=== PATIENT | male | born 1975 | race African-American/Black ===

== ENCOUNTER 2018-01-05 08:29 | Inpatient (IN) | payer OTHER ==
--- NOTE | 2018-01-05 09:37 | HP ---
CIWA Score - CIWA Score Nausea/Vomitin Muscle Tremors: 3 Anxiety: 2 Agitation: 2 Paroxysmal Sweats: 1-Minimal Palms Moist Orientation: 0-Oriented Tacttile Disturbances: 1-Very Mild Itch/Numbness Auditory Disturbances: 1-Very Mild Visual Disturbances: 1-Very Mild Sensitivity Headache: 2-Mild CIWA-Ar Total Score: 16 Admission ROS B[facility] - HPI Chief Complaint: i need help to stop drinking alcohol Allergies/Adverse Reactions: Allergies Allergy/AdvReac Type Severity Reaction Status Date / Time No Known Allergies Allergy Verified 01/05/18 11:35 History of Present Illness: this 42 years old with alcohol dependence,seeking detox,withdrawal symptom,last treatment [facility] 12/30/17 to 01/03/18 not completed seizure alcohol related in 12/16 syncope last 01/03/18 nicotine dependence anxiety,depression,insomnia weight loss multiple admissions in detox ,last [facility] no significant period of sobriety - Ebola screening Have you traveled outside of the country in the last 21 days: No Have you had contact with anyone from an Ebola affected area: No Have you been sick,other than usual withdrawal symptoms: No Do you have a fever: No - Review of Systems Constitutional: Loss of Appetite, Night Sweats, Weakness EENT: reports: No Symptoms Reported Respiratory: reports: No Symptoms reported Cardiac: reports: No Symptoms Reported GI: reports: No Symptoms Reported : reports: No Symptoms Reported Musculoskeletal: reports: No Symptoms Reported Integumentary: reports: No Symptoms Reported Neuro: reports: No Symptoms reported Endocrine: reports: No Symptoms Reported Hematology: reports: No Symptoms Reported Psychiatric: reports: No Sypmtoms Reported Patient History - Patient Medical History Hx Anemia: No Hx Asthma: No Hx Chronic Obstructive Pulmonary Disease (COPD): No Hx Cancer: No Hx Cardiac Disorders: No Hx Congestive Heart Failure: No Hx Hypertension: No Hx Hypercholesterolemia: No Hx Pacemaker: No HX Cerebrovascular Accident: No Hx Seizures: Yes (last 12/16) Hx Dementia: No Hx Diabetes: No Hx Gastrointestinal Disorders: No Hx Liver Disease: No Hx Genitourinary Disorders: No Hx Sexually Transmitted Disorders: No Hx Renal Disease (ESRD): No Hx Thyroid Disease: No Hx Human Immunodeficiency Virus (HIV): No (last 01.15 negative) Hx Hepatitis C: No Hx Depression: Yes (anxiety) Hx Suicide Attempt: No Hx Bipolar Disorder: No Hx Schizophrenia: No Other Medical History: in somnia,no suicidal,no homicidal - Patient Surgical History Past Surgical History: No - PPD History Previous Implant?: Yes Documented Results: Negative w/o proof Implanted On Prior R Admission?: No PPD to be Administered?: Yes - Smoking Cessation Smoking history: Current every day smoker Have you smoked in the past 12 months: Yes Aproximately how many cigarettes per day: 10 Hx Chewing Tobacco Use: No Initiated information on smoking cessation: Yes 'Breaking Loose' booklet given: 01/05/18 - Substance & Tx. History Hx Alcohol Use: Yes Hx Substance Use: No Substance Use Type: Alcohol Hx Substance Use Treatment: Yes (last [facility] 12/30/17 to ) - Substances Abused Alcohol Route: Oral Frequency: Daily Amount used: 1 to 2 pints of vodka Age of first use: 14 Date of Last Use: 01/04/18 Family Disease History - Family Disease History Family History: Denies Admission Physical Exam [facility] - Vital Signs Vital Signs: Vital Signs - 24 hr 01/05/18 08:56 Temperature 97.7 F Pulse Rate 93 H Respiratory 17 Rate Blood Pressure 123/79 - Physical General Appearance: Yes: Within Normal Limits HEENTM: Yes: Within Normal Limits Respiratory: Yes: Within Normal Limits Neck: Yes: Within Normal Limits Breast: Yes: Within Normal Limits Cardiology: Yes: Regular Rhythm, Regular Rate, S1, S2 Abdominal: Yes: Within Normal Limits, Normal Bowel Sounds, Non Tender, Flat, Soft Genitourinary: Yes: Within Normal Limits Back: Yes: Within Normal Limits Musculoskeletal: Yes: Within Normal Limits Extremities: Yes: Within Normal Limits Neurological: Yes: store shopper II-XII NML intact, Fully Oriented, Alert, Motor Strength 5/5 Integumentary: Yes: Within Normal Limits Lymphatic: Yes: Within Normal Limits - Diagnostic (1) Alcohol dependence Current Visit: Yes Status: Acute (2) Alcohol related seizure Current Visit: Yes Status: Acute (3) Syncope Current Visit: Yes Status: Acute (4) Weight loss Current Visit: Yes Status: Acute (5) Nicotine dependence Current Visit: Yes Status: Acute (6) Insomnia secondary to depression with anxiety Current Visit: Yes Status: Acute Cleared for Admission [facility] - Detox or Rehab Claeared for Rehab Admission: Yes BHS Breath Alcohol Content Breath Alcohol Content: 0.119 Urine Drug Screen - Results Drug Screen Negative: No Urine Drug Screen Results: BZO-Benzodiazepines Inpatient Rehab Admission - Initial Determination Are CD services needed?: Yes Free of communicable disease: Yes Not in need of hospitalization: Yes - Rehab Admission Criteria Previous failed treatment: Yes Poor recovery environment: Yes Comorbidities: Yes Lacks judgement: No Patient is meeting Inpatient Rehab admission criteria:: Yes
[2018-01-05] MEDS ORDERED: MAGNESIUM HYDROX 2400MG/30ML ORAL SUSPENSION 30 ML CUP PO PRN (14:06)
[2018-01-05] MEDS ORDERED: ACETAMINOPHEN 325 MG TABLET (FP) PO PRN (14:06)
[2018-01-05] MEDS ORDERED: MAGNESIUM CITRATE 300 ML BOTTLE PO PRN (14:06)
[2018-01-05] MEDS ORDERED: MENTHOL/PHENOL 1 EACH UD MM PRN (14:06)
[2018-01-05] MEDS ORDERED: P-EPHED 60MG/TRIPROLIDI 2.5MG TABLET PO PRN (14:06)
[2018-01-05] MEDS ORDERED: hydrOXYzine PAMOATE 25 MG CAPSULE (FP) PO PRN (14:06)
[2018-01-05] MEDS ORDERED: MAG HYDROX/AL HYDROX/SIMETH 30 ML UNIT-DOSE CUP PO PRN (14:06)
[2018-01-05] MEDS ORDERED: LOPERAMIDE HCL 2 MG CAPSULE PO PRN (14:06)
[2018-01-05] MEDS ORDERED: guaiFENesin/D-METHORPHAN HB 10 ML UNIT-DOSE CUPS PO PRN (14:06)
--- NOTE | 2018-01-05 16:08 | PN ---
BHS Progress Note Note: Patient reports no positive PPD hx of BGM vaccine in the past. PPD order place re: TB screen continue to monitor
[2018-01-05 17:23] LABS: HEMATOCRIT 40.5 % (35.4-49); HEMOGLOBIN 13.7 GM/dL (11.7-16.9); MCH 32.1 pg (25.7-33.7); MCHC 33.8 g/dl (32.0-35.9); MEAN CELL VOLUME 94.9 fl (80-96); MEAN PLT VOLUME 9.9 fl (7.5-11.1); PLATELET COUNT 98 K/MM3 (134-434); RBC 4.26 M/mm3 (4.00-5.60); RDW 14.7 % (11.9-15.9)
[2018-01-05 17:49] LABS: ALBUMIN 3.5 g/dl (3.4-5.0); ALK PHOS 129 U/L (45-117); ANION GAP 7 MMOL/L (8-16); BILIRUBIN,TOTAL 0.3 mg/dL (0.2-1); BLOOD UREA NITROGEN 6 mg/dL (7-18); CALCIUM 8.3 mg/dL (8.5-10.1); CHLORIDE 100 mmol/L (98-107); CO2 30 mmol/L (21-32); CREATININE 0.8 mg/dL (0.55-1.3); GLUCOSE,RANDOM 85 mg/dL (74-106); POTASSIUM 3.6 mmol/L (3.5-5.1); SGOT/AST 82 U/L (15-37); SGPT/ALT 64 U/L (13-61); SODIUM 138 mmol/L (136-145); TOT PROT 7.4 g/dl (6.4-8.2)
[2018-01-05] MEDS ORDERED: TUBERCULIN PPD 5 TU/0.1ML VIAL ID ONE ×2 (17:56→21:59)
[2018-01-05] MEDS: NICOTINE 21 MG/24 HOURS TOPICAL PATCH TD SCH (18:00)
[2018-01-05] MEDS: hydrOXYzine PAMOATE 50 MG CAPSULE (FP) PO PRN (18:32)
[2018-01-05] MEDS: THIAMINE HCL 100 MG TABLET (FP) PO SCH (21:27)
[2018-01-05] MEDS ORDERED: MELATONIN 5 MG TABLETS PO PRN (22:00)
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
[2018-01-06] MEDS: hydrOXYzine PAMOATE 50 MG CAPSULE (FP) PO PRN ×4 (06:35→21:39)
[2018-01-06] MEDS: NICOTINE 21 MG/24 HOURS TOPICAL PATCH TD SCH (09:45)
[2018-01-06] MEDS: PRENATAL VITAMINS W/ FOLIC ACID TABLET (FP) PO SCH (09:45)
[2018-01-06] MEDS ORDERED: SERTRALINE HCL 50 MG TABLET (FP) PO SCH (10:15)
[2018-01-06] MEDS ORDERED: SERTRALINE HCL 50 MG TABLET (FP) PO ONE (10:49)
[2018-01-06] MEDS: SERTRALINE HCL 50 MG TABLET (FP) PO SCH (11:40)
--- NOTE | 2018-01-06 11:48 | EKG ---
Test Reason : Blood Pressure : / mmHG Vent. Rate : 069 BPM Atrial Rate : 069 BPM P-R Int : 180 ms QRS Dur : 078 ms QT Int : 420 ms P-R-T Axes : -17 022 026 degrees QTc Int : 450 ms NORMAL SINUS RHYTHM MODERATE VOLTAGE CRITERIA FOR LVH, MAY BE NORMAL VARIANT CANNOT RULE OUT SEPTAL INFARCT , AGE UNDETERMINED ABNORMAL ECG NO PREVIOUS ECGS AVAILABLE Confirmed by Deyvi Colon MD ([id number]) on 01/06/2018 11:48:07 AM Referred By: Confirmed By:Deyvi Colon MD
[2018-01-06] MEDS ORDERED: FLU VACCINE QUAD 60 MCG/0.5 ML (MDV 18-19) IM ONE (12:00)
[2018-01-06] MEDS: THIAMINE HCL 100 MG TABLET (FP) PO SCH (21:39)
[2018-01-06] MEDS: MELATONIN 5 MG TABLETS PO PRN (21:40)
[2018-01-07] MEDS ORDERED: SERTRALINE HCL 50 MG TABLET (FP) PO SCH (06:00)
[2018-01-07] MEDS: hydrOXYzine PAMOATE 50 MG CAPSULE (FP) PO PRN ×4 (06:27→23:06)
[2018-01-07] MEDS: IBUPROFEN 400 MG TABLET (FP) PO PRN ×2 (06:28→18:31)
[2018-01-07] MEDS: SERTRALINE HCL 50 MG TABLET (FP) PO SCH (06:28)
[2018-01-07] MEDS: NICOTINE 21 MG/24 HOURS TOPICAL PATCH TD SCH (10:23)
[2018-01-07] MEDS: PRENATAL VITAMINS W/ FOLIC ACID TABLET (FP) PO SCH (10:23)
[2018-01-07] MEDS ORDERED: ONDANSETRON *ODT* 4 MG TABLET SL PRN (11:59)
--- NOTE | 2018-01-07 12:04 | PN ---
S Progress Note Note: C/O NAUSEA, NO DIARRHEA. ALERT O X 3. NAD. Vital Signs 01/07/18 06:51 Temperature 99.2 F Pulse Rate 80 Respiratory 18 Rate Blood Pressure 136/78 Laboratory Tests 01/05/18 01/05/18 01/05/18 14:14 14:14 14:14 WBC 4.0 RBC 4.26 Hgb 13.7 Hct 40.5 MCV 94.9 MCH 32.1 MCHC 33.8 RDW 14.7 Plt Count 98 L MPV 9.9 Sodium 138 Potassium 3.6 Chloride 100 Carbon Dioxide 30 Anion Gap 7 L BUN 6 L Creatinine 0.8 Creat Clearance w eGFR > 60 Random Glucose 85 Calcium 8.3 L Total Bilirubin 0.3 AST 82 H ALT 64 H Alkaline Phosphatase 129 H Total Protein 7.4 Albumin 3.5 RPR Titer Nonreactive PLAN:ZOFRAN DIRECTED.
--- NOTE | 2018-01-07 12:07 | HP ---
CIWA Score - CIWA Score Nausea/Vomitin Muscle Tremors: 3 Anxiety: 2 Agitation: 2 Paroxysmal Sweats: 1-Minimal Palms Moist Orientation: 0-Oriented Tacttile Disturbances: 1-Very Mild Itch/Numbness Auditory Disturbances: 1-Very Mild Visual Disturbances: 1-Very Mild Sensitivity Headache: 2-Mild CIWA-Ar Total Score: 16 Admission ROS BHS - HPI Chief Complaint: i need health to stop drinking alcohol Allergies/Adverse Reactions: Allergies Allergy/AdvReac Type Severity Reaction Status Date / Time No Known Allergies Allergy Verified 01/05/18 11:35 History of Present Illness: i need help to stop drinking alcohol,completed detox from 12/30/17 to , completed detox at [facility] seizure alcohol related syncope last 01/03/18 nicotine dependence anxiety,depression,insomnia weight loss multiple admissions in detox,last [facility] no significant period of sobriety Exam Limitations: No Limitations - Ebola screening Have you traveled outside of the country in the last 21 days: No Have you had contact with anyone from an Ebola affected area: No Have you been sick,other than usual withdrawal symptoms: No Do you have a fever: No - Review of Systems Constitutional: No Symptoms Reported EENT: reports: No Symptoms Reported Respiratory: reports: No Symptoms reported Cardiac: reports: No Symptoms Reported GI: reports: No Symptoms Reported : reports: No Symptoms Reported Musculoskeletal: reports: No Symptoms Reported Integumentary: reports: No Symptoms Reported Neuro: reports: No Symptoms reported Endocrine: reports: No Symptoms Reported Hematology: reports: No Symptoms Reported Psychiatric: reports: No Sypmtoms Reported Other Systems: Reviewed and Negative Patient History - Patient Medical History Hx Anemia: No Hx Asthma: No Hx Chronic Obstructive Pulmonary Disease (COPD): No Hx Cancer: No Hx Cardiac Disorders: No Hx Congestive Heart Failure: No Hx Hypertension: No Hx Hypercholesterolemia: No Hx Pacemaker: No HX Cerebrovascular Accident: No Hx Seizures: Yes (last 12/16) Hx Dementia: No Hx Diabetes: No Hx Gastrointestinal Disorders: No Hx Liver Disease: No Hx Genitourinary Disorders: No Hx Sexually Transmitted Disorders: No Hx Renal Disease (ESRD): No Hx Thyroid Disease: No Hx Human Immunodeficiency Virus (HIV): No (last 01.15 negative) Hx Hepatitis C: No Hx Depression: Yes (anxiety) Hx Suicide Attempt: No Hx Bipolar Disorder: No Hx Schizophrenia: No Other Medical History: in somnia,no suicidal,no homicidal - Patient Surgical History Past Surgical History: No Hx Neurologic Surgery: No Hx Cataract Extraction: No Hx Cardiac Surgery: No Hx Lung Surgery: No Hx Breast Surgery: No Hx Breast Biopsy: No Hx Abdominal Surgery: No Hx Appendectomy: No Hx Cholecystectomy: No Hx Genitourinary Surgery: No Hx Section: No Hx Orthopedic Surgery: No Anesthesia Reaction: No - PPD History Previous Implant?: Yes Documented Results: Negative w/o proof Implanted On Prior [facility] Admission?: No - Smoking Cessation Smoking history: Current every day smoker Have you smoked in the past 12 months: Yes Aproximately how many cigarettes per day: 10 Hx Chewing Tobacco Use: No Initiated information on smoking cessation: Yes 'Breaking Loose' booklet given: 01/06/18 - Substance & Tx. History Hx Alcohol Use: Yes Hx Substance Use: No Substance Use Type: Alcohol Hx Substance Use Treatment: Yes (12/30/17 to 01/03/18 [facility]) - Substances Abused Alcohol Route: Oral Frequency: Daily Amount used: 1 to 2 pints of vodka Age of first use: 14 Date of Last Use: 01/04/18 Family Disease History - Family Disease History Family History: Denies Admission Physical Exam [facility] - Vital Signs Vital Signs: Vital Signs - 24 hr 01/07/18 01/07/18 01/07/18 00:30 03:30 06:51 Temperature 99.2 F Pulse Rate 80 Respiratory 18 18 18 Rate Blood Pressure 136/78 - Physical General Appearance: Yes: Within Normal Limits HEENTM: Yes: Within Normal Limits Respiratory: Yes: Within Normal Limits Neck: Yes: Within Normal Limits Breast: Yes: Breast Exam Deferred Cardiology: Yes: Within Normal Limits Abdominal: Yes: Within Normal Limits Genitourinary: Yes: Within Normal Limits Back: Yes: Within Normal Limits Musculoskeletal: Yes: Within Normal Limits Extremities: Yes: Within Normal Limits Neurological: Yes: Within Normal Limits Integumentary: Yes: Within Normal Limits Lymphatic: Yes: Within Normal Limits - Diagnostic (1) Alcohol dependence Current Visit: Yes Status: Acute (2) Alcohol related seizure Current Visit: Yes Status: Deleted (3) Syncope Current Visit: Yes Status: Acute (4) Weight loss Current Visit: Yes Status: Acute (5) Nicotine dependence Current Visit: Yes Status: Chronic (6) Insomnia secondary to depression with anxiety Current Visit: Yes Status: Acute Cleared for Admission [facility] - Detox or Rehab Claeared for Rehab Admission: Yes [facility] Breath Alcohol Content Breath Alcohol Content: 0.119 Urine Drug Screen - Results Drug Screen Negative: No Urine Drug Screen Results: BZO-Benzodiazepines Inpatient Rehab Admission - Initial Determination Are CD services needed?: Yes Free of communicable disease: Yes Not in need of hospitalization: Yes - Rehab Admission Criteria Previous failed treatment: Yes Poor recovery environment: Yes Comorbidities: Yes Lacks judgement: No Patient is meeting Inpatient Rehab admission criteria:: Yes
--- NOTE | 2018-01-07 12:22 | PN ---
[facility] Progress Note Note: please discard the note history and physical exam on 01/05/18 and ciwa score patient was admitted to rehab ,has completed detox at [facility] 12/30/17 to 01/03/18
[2018-01-07] MEDS: MELATONIN 5 MG TABLETS PO PRN (21:38)
[2018-01-07] MEDS: THIAMINE HCL 100 MG TABLET (FP) PO SCH (21:38)
[2018-01-08] MEDS: hydrOXYzine PAMOATE 50 MG CAPSULE (FP) PO PRN ×4 (06:51→22:21)
[2018-01-08] MEDS: IBUPROFEN 400 MG TABLET (FP) PO PRN ×2 (06:52→21:37)
[2018-01-08] MEDS: SERTRALINE HCL 50 MG TABLET (FP) PO SCH (06:52)
[2018-01-08 07:07] VITALS: TEMP 98.4
[2018-01-08] MEDS: PRENATAL VITAMINS W/ FOLIC ACID TABLET (FP) PO SCH (10:20)
[2018-01-08] MEDS: NICOTINE 21 MG/24 HOURS TOPICAL PATCH TD SCH (10:20)
[2018-01-08] MEDS: MELATONIN 5 MG TABLETS PO PRN (21:35)
[2018-01-08] MEDS: THIAMINE HCL 100 MG TABLET (FP) PO SCH (21:35)
[2018-01-08] MEDS: prednisoLONE ACETATE 1% OPHTH SUSP 5 ML BOTTLE OD SCH (22:22)
[2018-01-08] MEDS: ARTIFICIAL TEARS (POLYVINYL ALCOHOL) OPTH DROPS OU SCH (22:23)
[2018-01-09] MEDS: SERTRALINE HCL 50 MG TABLET (FP) PO SCH (06:28)
[2018-01-09 07:08] VITALS: BP 139/69; PULSE 63
[2018-01-09] MEDS ORDERED: PANTOPRAZOLE 40 MG TABLET (FP) PO SCH (10:00)
[2018-01-09] MEDS: prednisoLONE ACETATE 1% OPHTH SUSP 5 ML BOTTLE OD SCH (10:09)
[2018-01-09] MEDS: PRENATAL VITAMINS W/ FOLIC ACID TABLET (FP) PO SCH (10:09)
[2018-01-09] MEDS: ARTIFICIAL TEARS (POLYVINYL ALCOHOL) OPTH DROPS OU SCH (10:09)
[2018-01-09] MEDS: NICOTINE 21 MG/24 HOURS TOPICAL PATCH TD SCH (10:10)
[2018-01-09] MEDS: hydrOXYzine PAMOATE 50 MG CAPSULE (FP) PO PRN (10:11)
== END 2018-01-09 10:50 | disposition left against medical advice (07) | DRG 770 ==
LOC: YASAS 08:29 → Y3W 13:41 → Y5N 13:53
PROVIDERS: ADMIT Psychiatry & Neurology Psychiatry; ATTEND Psychiatry & Neurology Psychiatry
PROC: HZ42ZZZ Group Counseling for Substance Abuse Treatment, Cognitive-Behavioral (ICD-10-PCS; principal; 2018-01-05)
DX: F10.24 Alcohol dependence with alcohol-induced mood disorder (principal); F10.282 Alcohol dependence with alcohol-induced sleep disorder; F17.210 Nicotine dependence, cigarettes, uncomplicated; F51.05 Insomnia due to other mental disorder; F33.9 Major depressive disorder, recurrent, unspecified; E78.5 Hyperlipidemia, unspecified; B18.1 Chronic viral hepatitis B without delta-agent; Z86.69 Personal history of other diseases of the nervous system and sense organs; Z87.898 Personal history of other specified conditions
CPT/HCPCS: 36415; 71046-TC-FY; 80053; 81003; 85027; 86593; 90688; 93005; 93010; G0008; Q0162

== ENCOUNTER 2018-04-04 08:16 | Inpatient (IN) | payer OTHER ==
[2018-04-04 09:12] VITALS: BMI 20.7
--- NOTE | 2018-04-04 10:27 | HP ---
CIWA Score Nausea/Vomitin Muscle Tremors: 4-Moderate,w/Arms Extend Anxiety: 4-Mod. Anxious/Guarded Agitation: 0-Normal Activity Paroxysmal Sweats: No Perspiration Orientation: 1-Uncertain about Date Tacttile Disturbances: 0-None Auditory Disturbances: 1-Very Mild Visual Disturbances: 0-None Headache: 2-Mild CIWA-Ar Total Score: 14 - Admission Criteria [facility] Guidelines: Admission for Medically Managed Detox: Requires at least one of the followin. CIWA greater than 12 2. Seizures within the past 24 hours 3. Delirium tremens within the past 24 hours 4. Hallucinations within the past 24 hours 5. Acute intervention needed for co occurring medical disorder 6. Acute intervention needed for co occurring psychiatric disorder 7. Severe withdrawal that cannot be handled at a lower level of care (continued vomiting, continued diarrhea, abnormal vital signs) requiring intravenous medication and/or fluids 8. Patient presents the following: CIWA greater than 12 Admission Criteria Met: Admission criteria met Admission ROS S - HPI Chief Complaint: I need help, I'm drinking to much, I'm sleeping on the street, I'm shaking so bad, I'm so sick with sweats and chills if I don't drink Allergies/Adverse Reactions: Allergies Allergy/AdvReac Type Severity Reaction Status Date / Time No Known Allergies Allergy Verified 04/04/18 09:42 History of Present Illness: 42 yo gentleman here for detox from alcohol - was in [place] ED last night due to intoxication (urine tox + bzo) and referred her for detox. Previously here for rehab 01/05/18. Patient with multiple circular lesions on body - states he had a biopsy done at [facility] and told it was psoriasis and given hydrocortisone cream. He also has an eye condition for which he received drops but cannot say the name of his eye problem - I called the pharmacy who verified he was Rx these drops as recently as 03/16/18 but he failed to pick them up - he states he still had leftover drops. History of alcohol related seizure - noted to have thrombocytopenia at last visit but he is not aware of this or why he has it. Exam Limitations: Clinical Condition - Ebola screening Have you traveled outside of the country in the last 21 days: No (N) Have you had contact with anyone from an Ebola affected area: No Have you been sick,other than usual withdrawal symptoms: No Do you have a fever: No - Review of Systems Constitutional: Loss of Appetite, Changes in sleep EENT: reports: Blurred Vision Respiratory: reports: No Symptoms reported Cardiac: reports: No Symptoms Reported GI: reports: Poor Appetite, Indigestion : reports: Frequency Musculoskeletal: reports: No Symptoms Reported Integumentary: reports: Dryness Neuro: reports: Headache, Tremors Endocrine: reports: No Symptoms Reported Hematology: reports: No Symptoms Reported Psychiatric: reports: Judgement Intact, Mood/Affect Appropiate, Anxious Other Systems: Reviewed and Negative Patient History - Patient Medical History Hx Anemia: Yes (thrombocytopenia) Hx Asthma: No Hx Chronic Obstructive Pulmonary Disease (COPD): No Hx Cancer: No Hx Cardiac Disorders: No Hx Congestive Heart Failure: No Hx Hypertension: No Hx Hypercholesterolemia: Yes (no meds) Hx Pacemaker: No HX Cerebrovascular Accident: No Hx Seizures: Yes (last 01/2018 FROM ALCOHOL WITHDRAWAL) Hx Dementia: No Hx Diabetes: No Hx Gastrointestinal Disorders: Yes (history of pancreatitis (in Bx Leb x 4 days in February)) Hx Liver Disease: Yes (hepatitis B ?) Hx Genitourinary Disorders: No Hx Sexually Transmitted Disorders: No Hx Renal Disease (ESRD): No Hx Thyroid Disease: No Hx Human Immunodeficiency Virus (HIV): No (last 01.15 negative) Hx Hepatitis C: No Hx Depression: Yes (anxiety) Hx Suicide Attempt: No Hx Bipolar Disorder: No Hx Schizophrenia: No Other Medical History: psoriasis - Patient Surgical History Past Surgical History: No Hx Neurologic Surgery: No Hx Cataract Extraction: No Hx Cardiac Surgery: No Hx Lung Surgery: No Hx Breast Surgery: No Hx Breast Biopsy: No Hx Abdominal Surgery: No Hx Appendectomy: No Hx Cholecystectomy: No Hx Genitourinary Surgery: No Hx Section: No Hx Orthopedic Surgery: No Anesthesia Reaction: No - PPD History Previous Implant?: No (BCG vaccine) Documented Results: Positive w/o proof Implanted On Prior [facility] Admission?: No Results: CXR 01/15/18 PPD to be Administered?: No - Reproductive History Patient is a Female of Child Bearing Age (11 -55 yrs old): No (male) - Smoking Cessation Smoking history: Current every day smoker Have you smoked in the past 12 months: Yes Aproximately how many cigarettes per day: 10 Hx Chewing Tobacco Use: No Initiated information on smoking cessation: Yes 'Breaking Loose' booklet given: 04/04/18 (give on floor) - Substance & Tx. History Hx Alcohol Use: Yes Hx Substance Use: No Substance Use Type: Alcohol Hx Substance Use Treatment: Yes (detox) - Substances Abused Alcohol Route: Oral Frequency: Daily Amount used: 3 PINTS OF VODKA Age of first use: 14 Date of Last Use: 04/03/18 Family Disease History - Family Disease History Family Disease History: Diabetes: Father (living - in [facility]), Other: Father, Mother (living - in [facility]), Brother (four - healthy - two in [place]), Sister (two - healthy - one lives in [facility]), Daughter (one age 16 in [facility]) Admission Physical Exam S - Vital Signs Vital Signs: Vital Signs - 24 hr 04/04/18 08:56 Temperature 97.9 F Pulse Rate 93 H Respiratory 20 Rate Blood Pressure 157/89 - Physical General Appearance: Yes: Nourished, Appropriately Dressed, Moderate Distress, Tremorous, Anxious HEENTM: Yes: EOMI, Hearing grossly Normal, Normocephalic, Normal Voice, Pharynx Normal, Other (conjunctiva bilaterally red - right eye with small breen lesion near pupil (patient states that is what is being treated with the drops)) Respiratory: Yes: Normal Breath Sounds, No Respiratory Distress Neck: Yes: No masses,lesions,Nodules, Supple Breast: Yes: Breast Exam Deferred Cardiology: Yes: Regular Rhythm, Regular Rate Abdominal: Yes: Flat, Soft Genitourinary: Yes: Frequency Back: Yes: Normal Inspection Musculoskeletal: Yes: full range of Motion, Gait Steady Extremities: Yes: Normal Capillary Refill, Normal Inspection, Normal Range of Motion, Non-Tender Neurological: Yes: Fully Oriented, Alert, Motor Strength 5/5, Normal Mood/Affect , Normal Response Integumentary: Yes: Normal Color, Dry, Warm, Rash (circular psoriatic lesions over entire body - arms, legs, trunk, scalp, forehead -) Lymphatic: Yes: Within Normal Limits - Diagnostic (1) Alcohol dependence with uncomplicated withdrawal Current Visit: Yes Status: Chronic (2) Eye disease Current Visit: Yes Status: Chronic (3) Generalized psoriasis Current Visit: Yes Status: Chronic (4) Hepatitis B Current Visit: Yes Status: Chronic Qualifiers: Viral hepatitis chronicity: unspecified Hepatic coma status: without hepatic coma (5) Thrombocytopenia Current Visit: Yes Status: Chronic (6) Alcohol related seizure Current Visit: Yes Status: Suspected Cleared for Admission [facility] - Detox or Rehab [facility] Level of Care: Medically Managed Detox Regimen/Protocol: Librium [facility] Breath Alcohol Content Breath Alcohol Content: 0.167 Urine Drug Screen - Results Drug Screen Negative: No Urine Drug Screen Results: BZO-Benzodiazepines
[2018-04-04] MEDS ORDERED: MAGNESIUM HYDROX 2400MG/30ML ORAL SUSPENSION 30 ML CUP PO PRN (11:24)
[2018-04-04] MEDS ORDERED: chlordiazePOXIDE HCL 25 MG CAPSULE PO PRN (11:24)
[2018-04-04] MEDS ORDERED: MAG HYDROX/AL HYDROX/SIMETH 30 ML UNIT-DOSE CUP PO PRN (11:24)
[2018-04-04] MEDS ORDERED: MENTHOL/PHENOL 1 EACH UD MM PRN (11:24)
[2018-04-04] MEDS ORDERED: hydrOXYzine PAMOATE 25 MG CAPSULE (FP) PO PRN (11:24)
[2018-04-04] MEDS ORDERED: MAGNESIUM CITRATE 300 ML BOTTLE PO PRN (11:24)
[2018-04-04] MEDS ORDERED: P-EPHED 60MG/TRIPROLIDI 2.5MG TABLET PO PRN (11:24)
[2018-04-04] MEDS ORDERED: IBUPROFEN 400 MG TABLET (FP) PO PRN (11:24)
[2018-04-04] MEDS ORDERED: ACETAMINOPHEN 325 MG TABLET (FP) PO PRN (11:24)
[2018-04-04] MEDS ORDERED: guaiFENesin/D-METHORPHAN HB 10 ML UNIT-DOSE CUPS PO PRN (11:24)
[2018-04-04] MEDS ORDERED: COLLOIDAL OATMEAL 1 BAR EACH TP PRN (11:25)
[2018-04-04] MEDS ORDERED: chlordiazePOXIDE HCL 25 MG CAPSULE PO ONE (12:30)
[2018-04-04] MEDS: prednisoLONE ACETATE 1% OPHTH SUSP 5 ML BOTTLE OD SCH ×3 (12:59→22:06)
[2018-04-04] MEDS: ARTIFICIAL TEARS (POLYVINYL ALCOHOL) OPTH DROPS OU SCH ×3 (12:59→22:06)
[2018-04-04] MEDS: NICOTINE 21 MG/24 HOURS TOPICAL PATCH TD SCH (13:00)
[2018-04-04] MEDS: HYDROCORTISONE 1% TOPICAL OINT 30 GM TUBE TP PRN ×2 (13:00→18:01)
[2018-04-04] MEDS: CYCLOPENTOLATE HCL 1% OPHTH SOLN 2 ML BOTTLE OD SCH (15:12)
--- NOTE | 2018-04-04 17:00 | CONSULT ---
[facility] Psychiatric Consult - Data Date of interview: 04/04/18 Admission source: [facility] Identifying data: Readmission to [facility] for this 42 y/o male, born in [facility], currently undergoing detoxification treatment, on , for alcohol dependence. Patient is single, a father of one, homeless, unemployed and supported on welfare. Substance Abuse History: Discussed with the patient. Details in current [facility] report as follows : Smoking history: Current every day smoker. Have you smoked in the past 12 months: Yes. Aproximately how many cigarettes per day: 10. Hx Chewing Tobacco Use: No. Initiated information on smoking cessation: Yes. ' Breaking Loose' booklet given: 04/04/18 (give on floor). - Substance & Tx. History. Hx Alcohol Use: Yes. Hx Substance Use: No. Substance Use Type: Alcohol. Hx Substance Use Treatment: Yes (detox). - Substances Abused. Alcohol. Route: Oral. Frequency: Daily. Amount used: 3 PINTS OF VODKA. Age of first use: 14. Date of Last Use: 04/03/18 Medical History: Remarkable for hypercholesterolemia, questionable history of hepatitis B, thrombocytopenia (as per [facility] report), psoriasis, positive PPD (self -report), recent occurrence of pancreatitis (reportedly treated at [facility] in February 2018) and a history of alcohol-related seizures. Psychiatric History: Patient is a guarded and evasive historian. Denies history of psychiatric hospitalizations, OPD care, past exposure to psychotropic medications or prior contact with psychiatric care providers. Mr Bai denies history of suicide attempts. Denies ever receiving a diagnosis of psychiatric disorder. " I don't have a mental illness. I drink alcohol. That is my only problem ". Review of records at [facility] indicates previous contact with Psychiatry, during incarceration, in 2010 (diagnosed with MDD and treated with sertraline + buspirone). Since his release in 2014, according to records, the patient has been maintained on psychotropic medications (zoloft + hydroxyzine) by his primary care physician Dr Sandhya Manjarrez. Patient declines to resume these medications in this hospital course. Physical/Sexual Abuse/Trauma History: Patient denies history of abuse. Additional Comment: Urine Drug Screen Results: BZO-Benzodiazepines. Noted. Mental Status Exam - Mental Status Exam Alert and Oriented to: Time, Place, Person Cognitive Function: Good Patient Appearance: Well Groomed (tall stature, wearing neat hospital gowns; noted cutaneous lesions consistent with flat, reddish circular, well- circonscribed erosions) Mood: Withdrawn, Anxious, Apprehensive, Hopeful Affect: Mood Congruent, Constricted Patient Behavior: Fatigued, Guarded, Cooperative (superficially cooperaitive) Speech Pattern: Clear Voice Loudness: Normal Thought Process: Goal Oriented Thought Disorder: Not Present Hallucinations: Denies Suicidal Ideation: Denies Homicidal Ideation: Denies Insight/Judgement: Poor Sleep: Fair Appetite: Good Muscle strength/Tone: Normal Gait/Station: Normal Psychiatric Findings - Problem List ([place] 1, 2,3) (1) Alcohol dependence with uncomplicated withdrawal Current Visit: Yes Status: Acute (2) Nicotine dependence Current Visit: Yes Status: Chronic Qualifiers: Nicotine product type: cigarettes Substance use status: uncomplicated Qualified Code(s): F17.210 - Nicotine dependence, cigarettes, uncomplicated (3) Alcohol-induced mood disorder Current Visit: Yes Status: Chronic (4) Insomnia Current Visit: Yes Status: Chronic - Initial Treatment Plan Initial Treatment Plan: Psychoeducation. Sleep hygiene. Detoxification in progress. Support. AA meetings. Motivational rounds. Insomnia is addressed with melatonin at bedtime. Patient agrees. Observation.
[2018-04-04] MEDS: chlordiazePOXIDE HCL 25 MG CAPSULE PO SCH ×2 (17:26→22:06)
[2018-04-04] MEDS: THIAMINE HCL 100 MG TABLET (FP) PO SCH (22:06)
[2018-04-04] MEDS: MELATONIN 5 MG TABLETS PO PRN (22:07)
[2018-04-05] MEDS: chlordiazePOXIDE HCL 25 MG CAPSULE PO SCH ×4 (06:09→22:00)
[2018-04-05] MEDS: ARTIFICIAL TEARS (POLYVINYL ALCOHOL) OPTH DROPS OU SCH ×4 (10:37→22:01)
[2018-04-05] MEDS: PRENATAL VITAMINS W/ FOLIC ACID TABLET (FP) PO SCH (10:37)
[2018-04-05] MEDS: prednisoLONE ACETATE 1% OPHTH SUSP 5 ML BOTTLE OD SCH ×4 (10:38→22:01)
[2018-04-05] MEDS: HYDROCORTISONE 1% TOPICAL OINT 30 GM TUBE TP PRN (10:38)
[2018-04-05] MEDS: CYCLOPENTOLATE HCL 1% OPHTH SOLN 2 ML BOTTLE OD SCH (10:38)
[2018-04-05] MEDS: NICOTINE 21 MG/24 HOURS TOPICAL PATCH TD SCH (10:40)
[2018-04-05] MEDS: LOPERAMIDE HCL 2 MG CAPSULE PO PRN (10:52)
[2018-04-05] MEDS: PANTOPRAZOLE 40 MG TABLET (FP) PO SCH (12:08)
[2018-04-05 13:04] LABS: HEMOGLOBIN 12.3 GM/dL (11.7-16.9); MCH 30.3 pg (25.7-33.7); MCHC 32.4 g/dl (32.0-35.9); MEAN CELL VOLUME 93.5 fl (80-96); PLATELET COUNT 99 K/MM3 (134-434); RBC 4.07 M/mm3 (4.00-5.60); RDW 15.8 % (11.9-15.9); WHITE BLOOD COUNT 5.4 K/mm3 (4.0-10.0)
[2018-04-05 13:10] LABS: ALBUMIN 3.8 g/dl (3.4-5.0); ALK PHOS 126 U/L (45-117); ANION GAP 11 MMOL/L (8-16); BILIRUBIN,TOTAL 0.4 mg/dL (0.2-1); BLOOD UREA NITROGEN 8 mg/dL (7-18); CALCIUM 8.4 mg/dL (8.5-10.1); CHLORIDE 97 mmol/L (98-107); CO2 28 mmol/L (21-32); CREATININE 0.8 mg/dL (0.55-1.3); GLUCOSE,RANDOM 118 mg/dL (74-106); POTASSIUM 3.3 mmol/L (3.5-5.1); SGOT/AST 134 U/L (15-37); SGPT/ALT 77 U/L (13-61); SODIUM 135 mmol/L (136-145); TOT PROT 7.7 g/dl (6.4-8.2)
--- NOTE | 2018-04-05 14:55 | PN ---
S CIWA - CIWA Score Nausea/Vomitin Muscle Tremors: 4-Moderate,w/Arms Extend Anxiety: 4-Mod. Anxious/Guarded Agitation: 2 Paroxysmal Sweats: 3 Orientation: 0-Oriented Tacttile Disturbances: 1-Very Mild Itch/Numbness Auditory Disturbances: 0-None Visual Disturbances: 0-None Headache: 1-Very Mild CIWA-Ar Total Score: 17 BHS Progress Note (SOAP) Subjective: Nausea, diarrhea, chills, interrupted sleep, stomach ache Objective: 04/05/18 14:51 Last Vital Signs Temp Pulse Resp BP Pulse Ox 98.7 F 70 18 132/74 04/05/18 06:09 04/05/18 06:09 04/05/18 06:09 04/05/18 06:09 Laboratory Tests 04/05/18 04/05/18 04/05/18 05:50 05:50 05:50 WBC 5.4 RBC 4.07 Hgb 12.3 Hct 38.0 MCV 93.5 MCH 30.3 MCHC 32.4 RDW 15.8 Plt Count 99 L MPV 9.0 Sodium 135 L Potassium 3.3 L Chloride 97 L Carbon Dioxide 28 Anion Gap 11 BUN 8 Creatinine 0.8 Creat Clearance w eGFR > 60 Random Glucose 118 H Calcium 8.4 L Total Bilirubin 0.4 AST 134 H ALT 77 H Alkaline Phosphatase 126 H Total Protein 7.7 Albumin 3.8 RPR Titer Nonreactive Labs reviewed: PLT 99, K 3.3 Assessment: 04/05/18 14:52 Withdrawal symptoms Noted with thrombocytopenia and hypokalemia Plan: Continue detox Encouraged PO water hydration Protonix 40mg PO daily due to stomach ache and history of GERD as per patient Thrombocytopenia: chronic, most likely due to hepatitis and alcohol dependence; follow up with PCP for monitoring Hypokalemia: K Dur 40 Meq PO x 2 doses, repeat BMP in AM (BMP ordered due to diarrhea)
[2018-04-05] MEDS ORDERED: POTASSIUM CHLORIDE TABS 20 MEQ TABLET.ER (FP) PO ONE ×2 (14:57→20:00)
[2018-04-05] MEDS: THIAMINE HCL 100 MG TABLET (FP) PO SCH (22:00)
[2018-04-05] MEDS: MELATONIN 5 MG TABLETS PO PRN (22:01)
[2018-04-06] MEDS: chlordiazePOXIDE HCL 25 MG CAPSULE PO SCH ×2 (05:56→10:26)
[2018-04-06] MEDS: PANTOPRAZOLE 40 MG TABLET (FP) PO SCH ×2 (06:06→10:32)
[2018-04-06] MEDS: PRENATAL VITAMINS W/ FOLIC ACID TABLET (FP) PO SCH (10:25)
[2018-04-06] MEDS: NICOTINE 21 MG/24 HOURS TOPICAL PATCH TD SCH (10:26)
[2018-04-06] MEDS: CYCLOPENTOLATE HCL 1% OPHTH SOLN 2 ML BOTTLE OD SCH (10:27)
[2018-04-06] MEDS: ARTIFICIAL TEARS (POLYVINYL ALCOHOL) OPTH DROPS OU SCH ×4 (10:27→22:16)
[2018-04-06] MEDS: prednisoLONE ACETATE 1% OPHTH SUSP 5 ML BOTTLE OD SCH ×4 (10:28→22:16)
[2018-04-06] MEDS: LOPERAMIDE HCL 2 MG CAPSULE PO PRN (10:31)
--- NOTE | 2018-04-06 13:19 | PN ---
S CIWA - CIWA Score Nausea/Vomitin Muscle Tremors: 2 Anxiety: 4-Mod. Anxious/Guarded Agitation: 1-Slight > Activity Paroxysmal Sweats: No Perspiration Orientation: 0-Oriented Tacttile Disturbances: 0-None Auditory Disturbances: 0-None Visual Disturbances: 0-None Headache: 0-None Present CIWA-Ar Total Score: 10 BHS Progress Note (SOAP) Subjective: PATIENT C/O DIARRHEA, ANXIETY, SHAKES AND INTERRUPTED SLEEP. Objective: 04/06/18 13:17 Vital Signs Temperature 97.9 F 04/06/18 09:29 Pulse Rate 69 04/06/18 09:29 Respiratory Rate 18 04/06/18 09:29 Blood Pressure 122/71 04/06/18 09:29 O2 Sat by Pulse Oximetry (%) Laboratory Tests 04/05/18 04/05/18 04/05/18 05:50 05:50 05:50 WBC 5.4 RBC 4.07 Hgb 12.3 Hct 38.0 MCV 93.5 MCH 30.3 MCHC 32.4 RDW 15.8 Plt Count 99 L MPV 9.0 Sodium 135 L Potassium 3.3 L Chloride 97 L Carbon Dioxide 28 Anion Gap 11 BUN 8 Creatinine 0.8 Creat Clearance w eGFR > 60 Random Glucose 118 H Calcium 8.4 L Total Bilirubin 0.4 AST 134 H ALT 77 H Alkaline Phosphatase 126 H Total Protein 7.7 Albumin 3.8 RPR Titer Nonreactive PE: ALERT AND ORIENTED X 3 SKIN WARM AND DRY EXT +TREMORS, FULL ROM AMB AD TIMUR +ANXIETY/GUARDED Assessment: 04/06/18 13:18 WITHDRAWAL SX Plan: CONTINUE DETOX ENCOURAGE ORAL FLUIDS PATIENT REFUSED AM LABS TODAY CMP ORDERED AND TO BE DRAWN IN AM
[2018-04-06] MEDS: chlordiazePOXIDE 5 MG CAPSULE PO SCH ×2 (17:30→22:16)
[2018-04-06] MEDS: HYDROCORTISONE 1% TOPICAL OINT 30 GM TUBE TP PRN (22:15)
[2018-04-06] MEDS: MELATONIN 5 MG TABLETS PO PRN (22:16)
[2018-04-06] MEDS: THIAMINE HCL 100 MG TABLET (FP) PO SCH (22:16)
[2018-04-07] MEDS: chlordiazePOXIDE 5 MG CAPSULE PO SCH ×2 (06:34→10:32)
[2018-04-07] MEDS: PANTOPRAZOLE 40 MG TABLET (FP) PO SCH ×2 (08:12→10:31)
[2018-04-07] MEDS: ARTIFICIAL TEARS (POLYVINYL ALCOHOL) OPTH DROPS OU SCH ×4 (10:31→22:14)
[2018-04-07] MEDS: PRENATAL VITAMINS W/ FOLIC ACID TABLET (FP) PO SCH (10:31)
[2018-04-07] MEDS: prednisoLONE ACETATE 1% OPHTH SUSP 5 ML BOTTLE OD SCH ×4 (10:32→22:14)
[2018-04-07] MEDS: CYCLOPENTOLATE HCL 1% OPHTH SOLN 2 ML BOTTLE OD SCH (10:32)
[2018-04-07] MEDS: NICOTINE 21 MG/24 HOURS TOPICAL PATCH TD SCH (10:32)
--- NOTE | 2018-04-07 11:31 | PN ---
BHS Progress Note (SOAP) Subjective: feeling better less tremor little sweat mild body aches Objective: 04/07/18 11:26 Vital Signs Temperature 98.0 F 04/07/18 09:33 Pulse Rate 69 04/07/18 09:33 Respiratory Rate 18 04/07/18 09:33 Blood Pressure 132/88 04/07/18 09:33 O2 Sat by Pulse Oximetry (%) Laboratory Last Values WBC 5.4 K/mm3 (4.0-10.0) 04/05/18 05:50 RBC 4.07 M/mm3 (4.00-5.60) 04/05/18 05:50 Hgb 12.3 GM/dL (11.7-16.9) 04/05/18 05:50 Hct 38.0 % (35.4-49) 04/05/18 05:50 MCV 93.5 fl (80-96) 04/05/18 05:50 MCH 30.3 pg (25.7-33.7) 04/05/18 05:50 MCHC 32.4 g/dl (32.0-35.9) 04/05/18 05:50 RDW 15.8 % (11.9-15.9) 04/05/18 05:50 Plt Count 99 K/MM3 (134-434) L 04/05/18 05:50 MPV 9.0 fl (7.5-11.1) 04/05/18 05:50 Sodium 135 mmol/L (136-145) L 04/05/18 05:50 Potassium 3.3 mmol/L (3.5-5.1) L 04/05/18 05:50 Chloride 97 mmol/L (98-107) L 04/05/18 05:50 Carbon Dioxide 28 mmol/L (21-32) 04/05/18 05:50 Anion Gap 11 MMOL/L (8-16) 04/05/18 05:50 BUN 8 mg/dL (7-18) 04/05/18 05:50 Creatinine 0.8 mg/dL (0.55-1.3) 04/05/18 05:50 Creat Clearance w eGFR > 60 (>60) 04/05/18 05:50 Random Glucose 118 mg/dL (74-106) H 04/05/18 05:50 Calcium 8.4 mg/dL (8.5-10.1) L 04/05/18 05:50 Total Bilirubin 0.4 mg/dL (0.2-1) 04/05/18 05:50 AST 134 U/L (15-37) H 04/05/18 05:50 ALT 77 U/L (13-61) H 04/05/18 05:50 Alkaline Phosphatase 126 U/L (45-117) H 04/05/18 05:50 Total Protein 7.7 g/dl (6.4-8.2) 04/05/18 05:50 Albumin 3.8 g/dl (3.4-5.0) 04/05/18 05:50 RPR Titer Nonreactive (NONREACTIVE) 04/05/18 05:50 HIV 1&2 Antibody Screen Negative 04/06/18 11:10 HIV P24 Antigen Negative 04/06/18 11:10 lab noted 04/07/18 11:32 low K+ continue K+ supplement Assessment: 04/07/18 11:32 mild withdrawal sx Plan: continue detox
[2018-04-07] MEDS: POTASSIUM CHLORIDE TABS 20 MEQ TABLET.ER (FP) PO SCH ×2 (13:22→22:13)
[2018-04-07] MEDS: chlordiazePOXIDE HCL 10 MG CAPSULE PO SCH ×2 (17:32→22:13)
[2018-04-07] MEDS: THIAMINE HCL 100 MG TABLET (FP) PO SCH (22:13)
[2018-04-07] MEDS: MELATONIN 5 MG TABLETS PO PRN (22:14)
[2018-04-08] MEDS: chlordiazePOXIDE HCL 10 MG CAPSULE PO SCH ×2 (06:17→10:12)
[2018-04-08] MEDS: PANTOPRAZOLE 40 MG TABLET (FP) PO SCH ×2 (06:18→10:13)
[2018-04-08] MEDS: HYDROCORTISONE 1% TOPICAL OINT 30 GM TUBE TP PRN (08:38)
[2018-04-08] MEDS: NICOTINE 21 MG/24 HOURS TOPICAL PATCH TD SCH (10:11)
[2018-04-08] MEDS: PRENATAL VITAMINS W/ FOLIC ACID TABLET (FP) PO SCH (10:11)
[2018-04-08] MEDS: ARTIFICIAL TEARS (POLYVINYL ALCOHOL) OPTH DROPS OU SCH ×3 (10:11→17:18)
[2018-04-08] MEDS: CYCLOPENTOLATE HCL 1% OPHTH SOLN 2 ML BOTTLE OD SCH (10:11)
[2018-04-08] MEDS: POTASSIUM CHLORIDE TABS 20 MEQ TABLET.ER (FP) PO SCH (10:11)
[2018-04-08] MEDS: prednisoLONE ACETATE 1% OPHTH SUSP 5 ML BOTTLE OD SCH ×3 (10:12→17:18)
--- NOTE | 2018-04-08 10:54 | DS ---
[facility] Detox Discharge Summary Admission Date: 04/04/18 Discharge Date: 04/08/18 - History Present History: Alcohol Dependence Additional Comments: 42 years old male admitted on 04/04/18 for alcohol withdrawal stabilization completed alcohol detox regimen alert no acute distress aftercare [facility] services strong recommend the patient to attend 12 step self help group - Physical Exam Results Vital Signs: Vital Signs Temperature 96.3 F L 04/08/18 09:14 Pulse Rate 116 H 04/08/18 09:14 Respiratory Rate 18 04/08/18 09:14 Blood Pressure 124/82 04/08/18 09:14 O2 Sat by Pulse Oximetry (%) Pertinent Admission Physical Exam Findings: alcohol withdrawal sx Laboratory Last Values WBC 5.4 K/mm3 (4.0-10.0) 04/05/18 05:50 RBC 4.07 M/mm3 (4.00-5.60) 04/05/18 05:50 Hgb 12.3 GM/dL (11.7-16.9) 04/05/18 05:50 Hct 38.0 % (35.4-49) 04/05/18 05:50 MCV 93.5 fl (80-96) 04/05/18 05:50 MCH 30.3 pg (25.7-33.7) 04/05/18 05:50 MCHC 32.4 g/dl (32.0-35.9) 04/05/18 05:50 RDW 15.8 % (11.9-15.9) 04/05/18 05:50 Plt Count 99 K/MM3 (134-434) L 04/05/18 05:50 MPV 9.0 fl (7.5-11.1) 04/05/18 05:50 Sodium 135 mmol/L (136-145) L 04/05/18 05:50 Potassium 3.3 mmol/L (3.5-5.1) L 04/05/18 05:50 Chloride 97 mmol/L (98-107) L 04/05/18 05:50 Carbon Dioxide 28 mmol/L (21-32) 04/05/18 05:50 Anion Gap 11 MMOL/L (8-16) 04/05/18 05:50 BUN 8 mg/dL (7-18) 04/05/18 05:50 Creatinine 0.8 mg/dL (0.55-1.3) 04/05/18 05:50 Creat Clearance w eGFR > 60 (>60) 04/05/18 05:50 Random Glucose 118 mg/dL (74-106) H 04/05/18 05:50 Calcium 8.4 mg/dL (8.5-10.1) L 04/05/18 05:50 Total Bilirubin 0.4 mg/dL (0.2-1) 04/05/18 05:50 AST 134 U/L (15-37) H 04/05/18 05:50 ALT 77 U/L (13-61) H 04/05/18 05:50 Alkaline Phosphatase 126 U/L (45-117) H 04/05/18 05:50 Total Protein 7.7 g/dl (6.4-8.2) 04/05/18 05:50 Albumin 3.8 g/dl (3.4-5.0) 04/05/18 05:50 RPR Titer Nonreactive (NONREACTIVE) 04/05/18 05:50 HIV 1&2 Antibody Screen Negative 04/06/18 11:10 HIV P24 Antigen Negative 04/06/18 11:10 lab noted discussed alcohol induced liver enzyme elevation as well as low K+ informed risk of low K+ introduced K+ rich food - Treatment Hospital Course: Detox Protocol Followed, Detoxed Safely, Responded well, Discharged Condition Good, Rehab Referral Accepted Patient has Accepted a Rehab Referral to: [facility] services - Medication Discharge Medications: Ambulatory Orders Pantoprazole Sodium [Protonix] 40 mg PO DAILY 01/08/18 Sertraline HCl [Zoloft] 100 mg PO DAILY #30 tablet 01/09/18 hydrOXYzine PAMOATE [Vistaril -] 50 mg PO BID PRN #60 capsule 01/09/18 Cyclopentolate 1% Eye Drops [Cyclogyl 1% Eye Drops -] 1 drop OD DAILY #1 drops 04/07/18 Polyvinyl Alcohol [Artificial Tears] 1 drop OU QID #1 drops MDD x 30days Potassium Chloride [K-Dur -] 20 meq PO BID #7 tablet.er 04/07/18 Prednisolone 1% Ophthalmic [Pred Forte 1% -] 1 drop OD QID #1 drops 04/07/18 - Diagnosis (1) GERD (gastroesophageal reflux disease) Current Visit: Yes Status: Chronic Qualifiers: Esophagitis presence: without esophagitis Qualified Code(s): K21.9 - Gastro -esophageal reflux disease without esophagitis (2) Alcohol dependence with uncomplicated withdrawal Current Visit: Yes Status: Acute (3) PPD positive Current Visit: Yes Status: Resolved (4) Weight loss Current Visit: Yes Status: Acute (5) Nicotine dependence Current Visit: Yes Status: Acute Qualifiers: Nicotine product type: cigarettes Substance use status: in withdrawal Qualified Code(s): F17.213 - Nicotine dependence, cigarettes, with withdrawal (6) Hepatitis B Current Visit: Yes Status: Chronic Qualifiers: Viral hepatitis chronicity: chronic Hepatic coma status: without hepatic coma (7) Dyslipidemia Current Visit: Yes Status: Chronic - AMA Did Patient Leave Against Medical Advice: No
[2018-04-08 17:28] VITALS: BP 138/79; PULSE 88; TEMP 99
== END 2018-04-08 17:42 | disposition other institution (70) | DRG 775 ==
LOC: YASAS 08:16 → Y3N 11:31
PROC: HZ2ZZZZ Detoxification Services for Substance Abuse Treatment (ICD-10-PCS; principal; 2018-04-04)
DX: F10.230 Alcohol dependence with withdrawal, uncomplicated (principal); F10.24 Alcohol dependence with alcohol-induced mood disorder; F17.213 Nicotine dependence, cigarettes, with withdrawal; E87.6 Hypokalemia; E78.5 Hyperlipidemia, unspecified; K21.9 Gastro-esophageal reflux disease without esophagitis; R76.11 Nonspecific reaction to tuberculin skin test without active tuberculosis; L40.9 Psoriasis, unspecified; D69.6 Thrombocytopenia, unspecified; G47.00 Insomnia, unspecified; Z86.69 Personal history of other diseases of the nervous system and sense organs; Z87.19 Personal history of other diseases of the digestive system
CPT/HCPCS: 36415; 80053; 85027; 86593; 87389

== ENCOUNTER 2018-04-08 18:13 | Inpatient (IN) | payer OTHER ==
--- NOTE | 2018-04-08 19:36 | HP ---
[facility] Rehab Assess/Revision - Admission History Ad[facility] Rehab [facility] Date of Admission to Rehab: 04/08/2018 - Findings Detox History & Physical reviewed: Yes Concur with findings: Yes Inpatient Rehab Admission - Initial Determination Are CD services needed?: Yes Free of communicable disease: Yes Not in need of hospitalization: Yes - Rehab Admission Criteria Previous failed treatment: Yes Poor recovery environment: Yes Comorbidities: Yes Lacks judgement: No Patient is meeting Inpatient Rehab admission criteria:: Yes
[2018-04-08] MEDS ORDERED: MAGNESIUM CITRATE 300 ML BOTTLE PO PRN (19:43)
[2018-04-08] MEDS ORDERED: MAGNESIUM HYDROX 2400MG/30ML ORAL SUSPENSION 30 ML CUP PO PRN (19:43)
[2018-04-08] MEDS ORDERED: NICOTINE POLACRILEX 2 MG GUM BUC PRN (19:43)
[2018-04-08] MEDS ORDERED: P-EPHED 60MG/TRIPROLIDI 2.5MG TABLET PO PRN (19:43)
[2018-04-08] MEDS ORDERED: ACETAMINOPHEN 325 MG TABLET (FP) PO PRN (19:43)
[2018-04-08] MEDS ORDERED: MAG HYDROX/AL HYDROX/SIMETH 30 ML UNIT-DOSE CUP PO PRN (19:43)
[2018-04-08] MEDS ORDERED: MENTHOL/PHENOL 1 EACH UD MM PRN (19:43)
[2018-04-08] MEDS ORDERED: LOPERAMIDE HCL 2 MG CAPSULE PO PRN (19:43)
[2018-04-08] MEDS: THIAMINE HCL 100 MG TABLET (FP) PO SCH (21:49)
[2018-04-08] MEDS: MELATONIN 5 MG TABLETS PO PRN (21:49)
[2018-04-08] MEDS: POTASSIUM CHLORIDE TABS 20 MEQ TABLET.ER (FP) PO SCH (21:49)
[2018-04-08] MEDS: prednisoLONE ACETATE 1% OPHTH SUSP 5 ML BOTTLE OD SCH (21:50)
[2018-04-08] MEDS: ARTIFICIAL TEARS (POLYVINYL ALCOHOL) OPTH DROPS OU SCH (21:50)
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
[2018-04-09] MEDS: ARTIFICIAL TEARS (POLYVINYL ALCOHOL) OPTH DROPS OU SCH ×4 (10:52→21:49)
[2018-04-09] MEDS: POTASSIUM CHLORIDE TABS 20 MEQ TABLET.ER (FP) PO SCH ×2 (10:53→21:48)
[2018-04-09] MEDS: CYCLOPENTOLATE HCL 1% OPHTH SOLN 2 ML BOTTLE OD SCH (10:53)
[2018-04-09] MEDS: NICOTINE 21 MG/24 HOURS TOPICAL PATCH TD SCH (10:54)
[2018-04-09] MEDS: PRENATAL VITAMINS W/ FOLIC ACID TABLET (FP) PO SCH (10:54)
[2018-04-09] MEDS: prednisoLONE ACETATE 1% OPHTH SUSP 5 ML BOTTLE OD SCH ×4 (10:54→21:50)
[2018-04-09] MEDS: PANTOPRAZOLE 40 MG TABLET (FP) PO SCH (10:55)
[2018-04-09 10:57] LABS: ALBUMIN 3.4 g/dl (3.4-5.0); ALK PHOS 122 U/L (45-117); ANION GAP 7 MMOL/L (8-16); BILIRUBIN,TOTAL 0.6 mg/dL (0.2-1); BLOOD UREA NITROGEN 9 mg/dL (7-18); CALCIUM 9.8 mg/dL (8.5-10.1); CHLORIDE 102 mmol/L (98-107); CO2 29 mmol/L (21-32); CREATININE 0.9 mg/dL (0.55-1.3); GLUCOSE,RANDOM 87 mg/dL (74-106); POTASSIUM 4.1 mmol/L (3.5-5.1); SGOT/AST 47 U/L (15-37); SGPT/ALT 59 U/L (13-61); SODIUM 138 mmol/L (136-145); TOT PROT 7.1 g/dl (6.4-8.2)
[2018-04-09] MEDS ORDERED: TRIAMCINOLONE ACET 0.025% OINTMENT 15 GM TUBE TP SCH ×2 (14:00→14:30)
[2018-04-09] MEDS: SERTRALINE HCL 50 MG TABLET (FP) PO SCH (14:00)
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
[2018-04-09] MEDS: TRIAMCINOLONE ACET 0.025% OINTMENT 15 GM TUBE TP SCH ×2 (17:34→21:49)
[2018-04-09] MEDS: hydrOXYzine PAMOATE 50 MG CAPSULE (FP) PO PRN ×2 (17:38→21:49)
[2018-04-09] MEDS: THIAMINE HCL 100 MG TABLET (FP) PO SCH (21:48)
[2018-04-09] MEDS: MELATONIN 5 MG TABLETS PO PRN (21:52)
[2018-04-10] MEDS: SERTRALINE HCL 50 MG TABLET (FP) PO SCH (10:51)
[2018-04-10] MEDS: PANTOPRAZOLE 40 MG TABLET (FP) PO SCH (10:51)
[2018-04-10] MEDS: PRENATAL VITAMINS W/ FOLIC ACID TABLET (FP) PO SCH (10:52)
[2018-04-10] MEDS: ARTIFICIAL TEARS (POLYVINYL ALCOHOL) OPTH DROPS OU SCH ×4 (10:52→21:50)
[2018-04-10] MEDS: CYCLOPENTOLATE HCL 1% OPHTH SOLN 2 ML BOTTLE OD SCH (10:53)
[2018-04-10] MEDS: TRIAMCINOLONE ACET 0.025% OINTMENT 15 GM TUBE TP SCH ×4 (10:54→21:50)
[2018-04-10] MEDS: NICOTINE 21 MG/24 HOURS TOPICAL PATCH TD SCH (10:55)
[2018-04-10] MEDS: POTASSIUM CHLORIDE TABS 20 MEQ TABLET.ER (FP) PO SCH ×2 (10:55→21:49)
[2018-04-10] MEDS: prednisoLONE ACETATE 1% OPHTH SUSP 5 ML BOTTLE OD SCH ×4 (10:56→21:51)
[2018-04-10] MEDS ORDERED: SODIUM CHLORIDE NASAL SPRAY 44 ML BOTTLE NS PRN (14:31)
--- NOTE | 2018-04-10 14:50 | PN ---
[facility] Progress Note Note: PT C/O RUNNY NOSE DURING THE DAY AND STUFFY NOSE AT NIGHT. REPORTS HX OF ALLERGIES AND TAKES CLARITIN. Vital Signs 04/10/18 06:57 Temperature 97.3 F L Pulse Rate 93 H Respiratory 16 Rate Blood Pressure 129/84 DI:RHINITIS, UNSPECIFIED PLAN;REORDER CLARITIN 10 MG PO DAILY FLONASE NASAL SPRAY DIRECTED.
[2018-04-10] MEDS: LORATADINE 10 MG TABLET PO SCH (15:35)
[2018-04-10] MEDS: THIAMINE HCL 100 MG TABLET (FP) PO SCH (21:49)
[2018-04-10] MEDS: FLUTICASONE PROP 0.05% 16 GM NASAL SPRAY NS SCH (21:50)
[2018-04-10] MEDS: MELATONIN 5 MG TABLETS PO PRN (21:51)
[2018-04-10] MEDS: hydrOXYzine PAMOATE 50 MG CAPSULE (FP) PO PRN (22:07)
[2018-04-11] MEDS: ARTIFICIAL TEARS (POLYVINYL ALCOHOL) OPTH DROPS OU SCH ×4 (10:18→21:53)
[2018-04-11] MEDS: FLUTICASONE PROP 0.05% 16 GM NASAL SPRAY NS SCH ×2 (10:18→21:55)
[2018-04-11] MEDS: POTASSIUM CHLORIDE TABS 20 MEQ TABLET.ER (FP) PO SCH ×2 (10:19→21:53)
[2018-04-11] MEDS: SERTRALINE HCL 50 MG TABLET (FP) PO SCH (10:19)
[2018-04-11] MEDS: TRIAMCINOLONE ACET 0.025% OINTMENT 15 GM TUBE TP SCH ×4 (10:19→21:53)
[2018-04-11] MEDS: PRENATAL VITAMINS W/ FOLIC ACID TABLET (FP) PO SCH (10:19)
[2018-04-11] MEDS: LORATADINE 10 MG TABLET PO SCH (10:20)
[2018-04-11] MEDS: PANTOPRAZOLE 40 MG TABLET (FP) PO SCH (10:20)
[2018-04-11] MEDS: hydrOXYzine PAMOATE 50 MG CAPSULE (FP) PO PRN ×2 (10:20→21:56)
[2018-04-11] MEDS: NICOTINE 21 MG/24 HOURS TOPICAL PATCH TD SCH (10:22)
[2018-04-11] MEDS: prednisoLONE ACETATE 1% OPHTH SUSP 5 ML BOTTLE OD SCH ×4 (10:22→21:55)
[2018-04-11] MEDS: CYCLOPENTOLATE HCL 1% OPHTH SOLN 2 ML BOTTLE OD SCH (10:24)
[2018-04-11] MEDS: IBUPROFEN 400 MG TABLET (FP) PO PRN ×2 (12:26→21:56)
[2018-04-11] MEDS: THIAMINE HCL 100 MG TABLET (FP) PO SCH (21:53)
[2018-04-11] MEDS: MELATONIN 5 MG TABLETS PO PRN (21:57)
[2018-04-12] MEDS: SERTRALINE HCL 50 MG TABLET (FP) PO SCH (10:14)
[2018-04-12] MEDS: PANTOPRAZOLE 40 MG TABLET (FP) PO SCH (10:14)
[2018-04-12] MEDS: POTASSIUM CHLORIDE TABS 20 MEQ TABLET.ER (FP) PO SCH ×2 (10:14→22:09)
[2018-04-12] MEDS: PRENATAL VITAMINS W/ FOLIC ACID TABLET (FP) PO SCH (10:14)
[2018-04-12] MEDS: LORATADINE 10 MG TABLET PO SCH (10:14)
[2018-04-12] MEDS: TRIAMCINOLONE ACET 0.025% OINTMENT 15 GM TUBE TP SCH ×4 (10:15→22:11)
[2018-04-12] MEDS: FLUTICASONE PROP 0.05% 16 GM NASAL SPRAY NS SCH ×2 (10:15→22:12)
[2018-04-12] MEDS: CYCLOPENTOLATE HCL 1% OPHTH SOLN 2 ML BOTTLE OD SCH (10:16)
[2018-04-12] MEDS: ARTIFICIAL TEARS (POLYVINYL ALCOHOL) OPTH DROPS OU SCH ×4 (10:16→22:10)
[2018-04-12] MEDS: NICOTINE 21 MG/24 HOURS TOPICAL PATCH TD SCH (10:17)
[2018-04-12] MEDS: prednisoLONE ACETATE 1% OPHTH SUSP 5 ML BOTTLE OD SCH ×4 (10:17→22:10)
[2018-04-12] MEDS: hydrOXYzine PAMOATE 50 MG CAPSULE (FP) PO PRN ×2 (10:19→22:10)
[2018-04-12] MEDS: THIAMINE HCL 100 MG TABLET (FP) PO SCH (22:10)
[2018-04-12] MEDS: MELATONIN 5 MG TABLETS PO PRN (22:10)
[2018-04-13] MEDS: NICOTINE 21 MG/24 HOURS TOPICAL PATCH TD SCH (10:52)
[2018-04-13] MEDS: SERTRALINE HCL 50 MG TABLET (FP) PO SCH (10:52)
[2018-04-13] MEDS: LORATADINE 10 MG TABLET PO SCH (10:53)
[2018-04-13] MEDS: PANTOPRAZOLE 40 MG TABLET (FP) PO SCH (10:53)
[2018-04-13] MEDS: FLUTICASONE PROP 0.05% 16 GM NASAL SPRAY NS SCH ×2 (10:53→21:37)
[2018-04-13] MEDS: POTASSIUM CHLORIDE TABS 20 MEQ TABLET.ER (FP) PO SCH ×2 (10:53→21:37)
[2018-04-13] MEDS: PRENATAL VITAMINS W/ FOLIC ACID TABLET (FP) PO SCH (10:53)
[2018-04-13] MEDS: prednisoLONE ACETATE 1% OPHTH SUSP 5 ML BOTTLE OD SCH ×4 (10:56→21:38)
[2018-04-13] MEDS: CYCLOPENTOLATE HCL 1% OPHTH SOLN 2 ML BOTTLE OD SCH (10:57)
[2018-04-13] MEDS: ARTIFICIAL TEARS (POLYVINYL ALCOHOL) OPTH DROPS OU SCH ×4 (10:59→21:38)
[2018-04-13] MEDS: TRIAMCINOLONE ACET 0.025% OINTMENT 15 GM TUBE TP SCH ×4 (10:59→21:39)
[2018-04-13] MEDS: THIAMINE HCL 100 MG TABLET (FP) PO SCH (21:37)
[2018-04-13] MEDS: hydrOXYzine PAMOATE 50 MG CAPSULE (FP) PO PRN (21:38)
[2018-04-13] MEDS: MELATONIN 5 MG TABLETS PO PRN (21:40)
[2018-04-14 07:21] VITALS: BP 131/82; PULSE 75; TEMP 97.5
[2018-04-14] MEDS ORDERED: COLLOIDAL OATMEAL 1 BAR EACH TP PRN (10:10)
[2018-04-14] MEDS: PRENATAL VITAMINS W/ FOLIC ACID TABLET (FP) PO SCH (10:16)
[2018-04-14] MEDS: PANTOPRAZOLE 40 MG TABLET (FP) PO SCH (10:17)
[2018-04-14] MEDS: LORATADINE 10 MG TABLET PO SCH (10:17)
[2018-04-14] MEDS: POTASSIUM CHLORIDE TABS 20 MEQ TABLET.ER (FP) PO SCH (10:17)
[2018-04-14] MEDS: NICOTINE 21 MG/24 HOURS TOPICAL PATCH TD SCH (10:17)
[2018-04-14] MEDS: SERTRALINE HCL 50 MG TABLET (FP) PO SCH (10:17)
[2018-04-14] MEDS: FLUTICASONE PROP 0.05% 16 GM NASAL SPRAY NS SCH (10:19)
[2018-04-14] MEDS: CYCLOPENTOLATE HCL 1% OPHTH SOLN 2 ML BOTTLE OD SCH (10:19)
[2018-04-14] MEDS: hydrOXYzine PAMOATE 50 MG CAPSULE (FP) PO PRN (10:19)
[2018-04-14] MEDS: TRIAMCINOLONE ACET 0.025% OINTMENT 15 GM TUBE TP SCH (10:20)
[2018-04-14] MEDS: prednisoLONE ACETATE 1% OPHTH SUSP 5 ML BOTTLE OD SCH (10:20)
[2018-04-14] MEDS: ARTIFICIAL TEARS (POLYVINYL ALCOHOL) OPTH DROPS OU SCH (10:20)
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
== END 2018-04-14 13:10 | disposition left against medical advice (07) | DRG 770 ==
LOC: YASAS 18:13 → Y5N 18:15
PROVIDERS: ADMIT Psychiatry & Neurology Psychiatry; ATTEND Psychiatry & Neurology Psychiatry
PROC: HZ42ZZZ Group Counseling for Substance Abuse Treatment, Cognitive-Behavioral (ICD-10-PCS; principal; 2018-04-08)
DX: F10.20 Alcohol dependence, uncomplicated (principal); F17.210 Nicotine dependence, cigarettes, uncomplicated; F10.24 Alcohol dependence with alcohol-induced mood disorder; F10.282 Alcohol dependence with alcohol-induced sleep disorder; F33.9 Major depressive disorder, recurrent, unspecified; D69.6 Thrombocytopenia, unspecified; E78.5 Hyperlipidemia, unspecified; J31.0 Chronic rhinitis; K21.9 Gastro-esophageal reflux disease without esophagitis; L40.9 Psoriasis, unspecified; H57.89 Other specified disorders of eye and adnexa; Z68.22 Body mass index [BMI] 22.0-22.9, adult; Z86.19 Personal history of other infectious and parasitic diseases; Z86.69 Personal history of other diseases of the nervous system and sense organs
CPT/HCPCS: 36415; 80053

== ENCOUNTER 2018-06-22 12:05 | Inpatient (IN) | payer OTHER ==
[2018-06-22 13:18] VITALS: BMI 21.2
--- NOTE | 2018-06-22 14:05 | HP ---
CIWA Score Nausea/Vomitin-Mild Nausea/No Vomiting Muscle Tremors: 4-Moderate,w/Arms Extend Anxiety: 3 Agitation: 0-Normal Activity Paroxysmal Sweats: 3 Orientation: 1-Uncertain about Date Tacttile Disturbances: 2-Mild Itch/Numbness/Burn Auditory Disturbances: 1-Very Mild Visual Disturbances: 1-Very Mild Sensitivity Headache: 2-Mild CIWA-Ar Total Score: 18 - Admission Criteria OASAS Guidelines: Admission for Medically Managed Detox: Requires at least one of the followin. CIWA greater than 12 2. Seizures within the past 24 hours 3. Delirium tremens within the past 24 hours 4. Hallucinations within the past 24 hours 5. Acute intervention needed for co occurring medical disorder 6. Acute intervention needed for co occurring psychiatric disorder 7. Severe withdrawal that cannot be handled at a lower level of care (continued vomiting, continued diarrhea, abnormal vital signs) requiring intravenous medication and/or fluids 8. Patient presents the following: CIWA greater than 12 Admission Criteria Met: Admission criteria met Admission ROS S - HPI Chief Complaint: " I don't feel good when I stop drinking" Allergies/Adverse Reactions: Allergies Allergy/AdvReac Type Severity Reaction Status Date / Time No Known Allergies Allergy Verified 04/04/18 09:42 History of Present Illness: 42 yo male with hx of nicotine and alcohol dependence is here seeking detox. Reports was at [facility] three weeks ago d/t Pancreatitis. PMHX: Hep B, psoriasis, depression and anxiety. Denies suicidal / homicidal ideation or hx of suicide attempt. Reports remote of alcohol related seizure, reports last episode three months ago Exam Limitations: No Limitations - Ebola screening Have you traveled outside of the country in the last 21 days: No Have you had contact with anyone from an Ebola affected area: No Have you been sick,other than usual withdrawal symptoms: No Do you have a fever: No - Review of Systems Constitutional: Chills, Loss of Appetite, Night Sweats, Changes in sleep, Unintentional Wgt. Loss EENT: reports: Cataracts (pending sx), Throat Pain Respiratory: reports: Other (SOB when not drinking) GI: reports: Nausea, Poor Appetite, Poor Fluid Intake, Indigestion, Abdominal cramping, Other (mid-epigastric pain x 4 months) : reports: No Symptoms Reported Musculoskeletal: reports: Back Pain Integumentary: reports: See HPI, Lesions (+ multiple while plaques), Pruritus Neuro: reports: Numbness (both feet and hands), Dizziness Endocrine: reports: Increased Thirst Hematology: reports: Other (hx of low platelets) Psychiatric: reports: Orientated x3, Depressed Other Systems: Reviewed and Negative Patient History - Patient Medical History Hx Anemia: Yes (thrombocytopenia) Hx Asthma: No Hx Chronic Obstructive Pulmonary Disease (COPD): No Hx Cancer: No Hx Cardiac Disorders: No Hx Congestive Heart Failure: No Hx Hypertension: No Hx Hypercholesterolemia: Yes (no meds) Hx Pacemaker: No HX Cerebrovascular Accident: No Hx Seizures: Yes Hx Dementia: No Hx Diabetes: No Hx Gastrointestinal Disorders: No Hx Liver Disease: Yes (hepatitis B ?) Hx Genitourinary Disorders: No Hx Sexually Transmitted Disorders: No Hx Renal Disease (ESRD): No Hx Thyroid Disease: No Hx Human Immunodeficiency Virus (HIV): No (Mar 2018) Hx Hepatitis C: No Hx Depression: Yes Hx Suicide Attempt: No Hx Bipolar Disorder: No Hx Schizophrenia: No - Patient Surgical History Past Surgical History: No Hx Neurologic Surgery: No Hx Cataract Extraction: No Hx Cardiac Surgery: No Hx Lung Surgery: No Hx Breast Surgery: No Hx Breast Biopsy: No Hx Abdominal Surgery: No Hx Appendectomy: No Hx Cholecystectomy: No Hx Genitourinary Surgery: No Hx Section: No Hx Orthopedic Surgery: No Anesthesia Reaction: No - PPD History Results: CXR 01/15/18 PPD to be Administered?: No - Smoking Cessation Smoking history: Current every day smoker Have you smoked in the past 12 months: Yes Aproximately how many cigarettes per day: 10 Hx Chewing Tobacco Use: No Initiated information on smoking cessation: Yes 'Breaking Loose' booklet given: 06/22/18 - Substance & Tx. History Hx Alcohol Use: Yes Hx Substance Use: Yes Substance Use Type: Alcohol Hx Substance Use Treatment: Yes (Last detox [facility] Three weeks ago ) - Substances Abused Alcohol Route: Oral Frequency: Daily Age of first use: 14 Date of Last Use: 06/20/18 Family Disease History - Family Disease History Family Disease History: Diabetes: Father (living - in [facility]), Other: Father, Mother (living - in [facility]), Brother (four - healthy - two in [place]), Sister (two - healthy - one lives in [facility]), Daughter (one age 16 in [facility]) Admission Physical Exam [facility] - Vital Signs Vital Signs: Vital Signs - 24 hr 06/22/18 13:17 Temperature 96.8 F L Pulse Rate 98 H Respiratory 18 Rate Blood Pressure 142/90 - Physical General Appearance: Yes: Appropriately Dressed, Disheveled, Moderate Distress, Alcohol on Breath, Thin, Tremorous, Sweating, Anxious HEENTM: Yes: EOMI, Hearing grossly Normal, Normal ENT Inspection, Normal Voice, JHONATAN, Pharynx Normal, Tm's normal, Rhinorrhea Respiratory: Yes: Chest Non-Tender, Lungs Clear, Normal Breath Sounds, No Respiratory Distress, No Accessory Muscle Use Neck: Yes: Within Normal Limits Breast: Yes: Breast Exam Deferred Cardiology: Yes: Regular Rhythm, Regular Rate, S1, S2 Abdominal: Yes: Normal Bowel Sounds, Flat, Soft, Tenderness (RUQ ( reports happend when drinks too much alcohol)) Genitourinary: Yes: Within Normal Limits Back: Yes: Normal Inspection Musculoskeletal: Yes: full range of Motion, Gait Steady, Pelvis Stable, Back pain Extremities: Yes: Normal Capillary Refill, Normal Inspection, Normal Range of Motion, Non-Tender Neurological: Yes: suture gauger II-XII NML intact, Fully Oriented, Alert, Motor Strength 5/5, Depressed Affect Integumentary: Yes: Warm, Diaphoresis, Other (hultiple silver / white scally patches through head, and upper extremities) Lymphatic: Yes: Within Normal Limits - Diagnostic (1) Alcohol dependence with uncomplicated withdrawal Current Visit: Yes Status: Acute (2) GERD (gastroesophageal reflux disease) Current Visit: Yes Status: Chronic Qualifiers: Esophagitis presence: esophagitis presence not specified Qualified Code(s) : K21.9 - Gastro-esophageal reflux disease without esophagitis (3) Generalized psoriasis Current Visit: Yes Status: Chronic (4) History of pancreatitis Current Visit: Yes Status: Chronic (5) Nicotine dependence Current Visit: Yes Status: Chronic Qualifiers: Nicotine product type: cigarettes Substance use status: uncomplicated Qualified Code(s): F17.210 - Nicotine dependence, cigarettes, uncomplicated (6) Weight loss Current Visit: Yes Status: Chronic (7) Hepatitis B Current Visit: Yes Status: Resolved Qualifiers: Viral hepatitis chronicity: chronic Hepatic coma status: without hepatic coma (8) PPD positive Current Visit: Yes Status: Resolved Cleared for Admission [facility] - Detox or Rehab [facility] Level of Care: Medically Managed (DETOX PROTOCOL ATIVAN HX ELVATED LIVER ENZYMES) [facility] Breath Alcohol Content Breath Alcohol Content: 0.255 Urine Drug Screen - Results Drug Screen Negative: No Urine Drug Screen Results: BZO-Benzodiazepines Inpatient Rehab Admission - Rehab Decision to Admit Inpatient rehab admission?: No
[2018-06-22] MEDS ORDERED: MENTHOL/PHENOL 1 EACH UD MM PRN (14:16)
[2018-06-22] MEDS ORDERED: NICOTINE POLACRILEX 2 MG GUM BUC PRN (14:16)
[2018-06-22] MEDS ORDERED: LORazepam 1 MG TABLET PO PRN (14:16)
[2018-06-22] MEDS ORDERED: MAGNESIUM CITRATE 300 ML BOTTLE PO PRN (14:16)
[2018-06-22] MEDS ORDERED: METHOCARBAMOL 500 MG TABLET PO PRN (14:16)
[2018-06-22] MEDS ORDERED: BISMUTH SUBSALICYLATE 524 MG/30 ML UD PO PRN (14:16)
[2018-06-22] MEDS ORDERED: IBUPROFEN 400 MG TABLET (FP) PO PRN ×2 (14:16)
[2018-06-22] MEDS ORDERED: MAGNESIUM HYDROX 2400MG/30ML ORAL SUSPENSION 30 ML CUP PO PRN (14:16)
[2018-06-22] MEDS ORDERED: LORazepam 2 MG TABLET PO ONE (14:16)
[2018-06-22] MEDS ORDERED: MAG HYDROX/AL HYDROX/SIMETH 30 ML UNIT-DOSE CUP PO PRN (14:16)
[2018-06-22] MEDS ORDERED: ONDANSETRON *ODT* 4 MG TABLET SL PRN (14:16)
[2018-06-22] MEDS: LORazepam 2 MG TABLET PO SCH ×2 (17:34→22:20)
[2018-06-22] MEDS ORDERED: MELATONIN 5 MG TABLETS PO PRN (22:00)
[2018-06-22] MEDS: THIAMINE HCL 100 MG TABLET (FP) PO SCH (22:20)
[2018-06-23] MEDS: LORazepam 2 MG TABLET PO SCH ×2 (05:52→10:18)
[2018-06-23] MEDS ORDERED: ARTIFICIAL TEARS (POLYVINYL ALCOHOL) OPTH DROPS OU PRN (08:42)
--- NOTE | 2018-06-23 09:29 | EKG ---
Test Reason : Blood Pressure : / mmHG Vent. Rate : 085 BPM Atrial Rate : 085 BPM P-R Int : 174 ms QRS Dur : 098 ms QT Int : 390 ms P-R-T Axes : 061 -04 040 degrees QTc Int : 464 ms NORMAL SINUS RHYTHM VOLTAGE CRITERIA FOR LEFT VENTRICULAR HYPERTROPHY ABNORMAL ECG WHEN COMPARED WITH ECG OF 06-JAN-2018 10:46, NO SIGNIFICANT CHANGE WAS FOUND Confirmed by SAHIL WINTER MD ([id number]) on 06/23/2018 9:29:25 AM Referred By: Confirmed By:SAHIL WINTER MD
[2018-06-23] MEDS: NICOTINE 14 MG/24 HOURS TOPICAL PATCH TD SCH (10:18)
[2018-06-23] MEDS: PRENATAL VITAMINS W/ FOLIC ACID TABLET (FP) PO SCH (10:18)
[2018-06-23] MEDS: diphenhydrAMINE HCL 25 MG CAPSULE (FP) PO PRN ×2 (10:19→17:31)
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
--- NOTE | 2018-06-23 11:15 | PN ---
S CIWA - CIWA Score Nausea/Vomitin-No Nausea/No Vomiting Muscle Tremors: 3 Anxiety: 3 Agitation: 3 Paroxysmal Sweats: 3 Orientation: 0-Oriented Tacttile Disturbances: 0-None Auditory Disturbances: 0-None Visual Disturbances: 0-None Headache: 0-None Present CIWA-Ar Total Score: 12 [facility] Progress Note (SOAP) Subjective: shakes sweats restless body is itchy with all the plaque on my body interrupted sleep tired agitation Objective: 06/23/18 11:13 Vital Signs Temperature 98.1 F 06/23/18 09:32 Pulse Rate 77 06/23/18 09:32 Respiratory Rate 18 06/23/18 09:32 Blood Pressure 140/77 06/23/18 09:32 O2 Sat by Pulse Oximetry (%) labs pending aaox3 ambulating no acute distress Assessment: 06/23/18 11:14 withdrawal sx Plan: continue detox increase fluids lidex cream ordered benadryl 25mg prn
[2018-06-23 12:14] LABS: HEMATOCRIT 36.6 % (35.4-49); HEMOGLOBIN 12.8 GM/dL (11.7-16.9); MCH 32.1 pg (25.7-33.7); MCHC 34.9 g/dl (32.0-35.9); MEAN CELL VOLUME 91.9 fl (80-96); MEAN PLT VOLUME 8.4 fl (7.5-11.1); PLATELET COUNT 142 K/MM3 (134-434); RBC 3.98 M/mm3 (4.00-5.60); RDW 15.5 % (11.9-15.9); WHITE BLOOD COUNT 3.6 K/mm3 (4.0-10.0)
[2018-06-23] MEDS: SERTRALINE HCL 50 MG TABLET (FP) PO SCH (12:20)
[2018-06-23 12:42] LABS: ALBUMIN 3.4 g/dl (3.4-5.0); ALK PHOS 75 U/L (45-117); ANION GAP 10 MMOL/L (8-16); BILIRUBIN,TOTAL 0.8 mg/dL (0.2-1); BLOOD UREA NITROGEN 8 mg/dL (7-18); CALCIUM 7.5 mg/dL (8.5-10.1); CHLORIDE 98 mmol/L (98-107); CO2 31 mmol/L (21-32); CREATININE 0.8 mg/dL (0.55-1.3); GLUCOSE,RANDOM 81 mg/dL (74-106); SGOT/AST 70 U/L (15-37); SGPT/ALT 67 U/L (13-61); SODIUM 138 mmol/L (136-145); TOT PROT 6.8 g/dl (6.4-8.2)
[2018-06-23] MEDS: FLUOCINONIDE 0.05% CREAM (15 GM TUBE) TP SCH ×2 (13:26→13:27)
[2018-06-23] MEDS: LORazepam 1 MG TABLET PO SCH ×2 (17:27→22:06)
[2018-06-23] MEDS: FLUOCINONIDE 0.05% CREAM (60 GM TUBE) TP SCH ×2 (17:29→22:06)
[2018-06-23] MEDS ORDERED: hydrOXYzine PAMOATE 25 MG CAPSULE (FP) PO PRN (20:34)
[2018-06-23] MEDS: THIAMINE HCL 100 MG TABLET (FP) PO SCH (22:05)
[2018-06-23] MEDS: MELATONIN 5 MG TABLETS PO PRN (22:09)
[2018-06-24] MEDS: LORazepam 1 MG TABLET PO SCH ×2 (06:02→10:13)
[2018-06-24] MEDS: diphenhydrAMINE HCL 25 MG CAPSULE (FP) PO PRN (06:03)
[2018-06-24] MEDS ORDERED: COLLOIDAL OATMEAL 1 BAR EACH TP PRN (09:56)
[2018-06-24] MEDS ORDERED: diphenhydrAMINE HCL 25 MG CAPSULE (FP) PO PRN (09:57)
[2018-06-24] MEDS: NICOTINE 14 MG/24 HOURS TOPICAL PATCH TD SCH (10:12)
[2018-06-24] MEDS: SERTRALINE HCL 50 MG TABLET (FP) PO SCH (10:13)
[2018-06-24] MEDS: PRENATAL VITAMINS W/ FOLIC ACID TABLET (FP) PO SCH (10:13)
[2018-06-24] MEDS: FLUOCINONIDE 0.05% CREAM (60 GM TUBE) TP SCH ×4 (10:14→22:50)
[2018-06-24] MEDS ORDERED: KETOCONAZOLE 2 % SHAMPOO 120 ML BOTTLE TP SCH (10:30)
--- NOTE | 2018-06-24 11:03 | PN ---
[facility] CIWA - CIWA Score Nausea/Vomitin-No Nausea/No Vomiting Muscle Tremors: 3 Anxiety: 3 Agitation: 3 Paroxysmal Sweats: 2 Orientation: 0-Oriented Tacttile Disturbances: 0-None Auditory Disturbances: 0-None Visual Disturbances: 0-None Headache: 0-None Present CIWA-Ar Total Score: 11 S Progress Note (SOAP) Subjective: sweats shakes itchy plaques interrupted sleep Objective: 06/24/18 11:01 Vital Signs Temperature 97.5 F L 06/24/18 09:55 Pulse Rate 63 06/24/18 09:55 Respiratory Rate 16 06/24/18 09:55 Blood Pressure 125/88 06/24/18 09:55 O2 Sat by Pulse Oximetry (%) Laboratory Tests 06/23/18 06/23/18 06/23/18 07:30 07:30 07:30 WBC 3.6 L RBC 3.98 L Hgb 12.8 Hct 36.6 MCV 91.9 MCH 32.1 MCHC 34.9 RDW 15.5 Plt Count 142 D MPV 8.4 Sodium 138 Potassium 3.0 L Chloride 98 Carbon Dioxide 31 Anion Gap 10 BUN 8 Creatinine 0.8 Creat Clearance w eGFR 106.01 Random Glucose 81 Calcium 7.5 L Total Bilirubin 0.8 AST 70 H ALT 67 H Alkaline Phosphatase 75 Total Protein 6.8 Albumin 3.4 RPR Titer Nonreactive HIV 1&2 Antibody Screen HIV P24 Antigen 06/23/18 07:30 WBC RBC Hgb Hct MCV MCH MCHC RDW Plt Count MPV Sodium Potassium Chloride Carbon Dioxide Anion Gap BUN Creatinine Creat Clearance w eGFR Random Glucose Calcium Total Bilirubin AST ALT Alkaline Phosphatase Total Protein Albumin RPR Titer HIV 1&2 Antibody Screen Negative HIV P24 Antigen Negative low potassium 3.0; kdur 20meq ordered aaox3 ambulating no acute distress Assessment: 06/24/18 11:02 withdrawal sx Plan: continue detox increase fluids benadryl 50mg prn lidex 2 tubes ordered nizorol shampoo aveeno soap
[2018-06-24] MEDS: POTASSIUM CHLORIDE TABS 20 MEQ TABLET.ER (FP) PO SCH (12:11)
[2018-06-24] MEDS ORDERED: diphenhydrAMINE HCL 25 MG CAPSULE (FP) PO ONE ×2 (15:28→17:02)
[2018-06-24] MEDS: diphenhydrAMINE HCL 50 MG CAPSULE PO PRN ×2 (15:32→22:29)
[2018-06-24] MEDS ORDERED: LORazepam 0.5 MG TABLET PO PRN (17:00)
[2018-06-24] MEDS: LORazepam 0.5 MG TABLET PO SCH ×2 (17:18→22:29)
[2018-06-24] MEDS: THIAMINE HCL 100 MG TABLET (FP) PO SCH (22:29)
[2018-06-24] MEDS: MELATONIN 5 MG TABLETS PO PRN (22:31)
[2018-06-25] MEDS: LORazepam 0.5 MG TABLET PO SCH ×3 (06:27→17:25)
[2018-06-25] MEDS: diphenhydrAMINE HCL 50 MG CAPSULE PO PRN ×3 (06:31→23:19)
--- NOTE | 2018-06-25 10:26 | PN ---
BHS Progress Note (SOAP) Subjective: sweats interrupted sleep Objective: 06/25/18 10:28 Vital Signs Temperature 97.9 F 06/25/18 09:36 Pulse Rate 76 06/25/18 09:36 Respiratory Rate 18 06/25/18 09:36 Blood Pressure 142/90 06/25/18 09:36 O2 Sat by Pulse Oximetry (%) aaox3 ambulating no acute distress Assessment: 06/25/18 10:28 mild withdrawal sx Plan: continue detox increase fluids d/c in am
[2018-06-25] MEDS: POTASSIUM CHLORIDE TABS 20 MEQ TABLET.ER (FP) PO SCH (10:36)
[2018-06-25] MEDS: PRENATAL VITAMINS W/ FOLIC ACID TABLET (FP) PO SCH (10:36)
[2018-06-25] MEDS: SERTRALINE HCL 50 MG TABLET (FP) PO SCH (10:36)
[2018-06-25] MEDS: FLUOCINONIDE 0.05% CREAM (60 GM TUBE) TP SCH ×4 (10:37→23:18)
[2018-06-25] MEDS: NICOTINE 14 MG/24 HOURS TOPICAL PATCH TD SCH (10:37)
[2018-06-25] MEDS: THIAMINE HCL 100 MG TABLET (FP) PO SCH (23:20)
[2018-06-25] MEDS: MELATONIN 5 MG TABLETS PO PRN (23:21)
[2018-06-26 06:26] VITALS: BP 138/89; PULSE 73; TEMP 98.1
--- NOTE | 2018-06-26 09:39 | DS ---
[facility] Detox Discharge Summary Admission Date: 06/22/18 Discharge Date: 06/26/18 - History Present History: Alcohol Dependence - Physical Exam Results Vital Signs: Vital Signs Temperature 98.1 F 06/26/18 06:00 Pulse Rate 73 06/26/18 06:00 Respiratory Rate 18 06/26/18 06:00 Blood Pressure 138/89 06/26/18 06:00 O2 Sat by Pulse Oximetry (%) - Treatment Hospital Course: Detox Protocol Followed, Detoxed Safely, Responded well, Discharged Condition Good, Rehab Referral Accepted - Medication Discharge Medications: Ambulatory Orders Pantoprazole Sodium [Protonix] 40 mg PO DAILY 01/08/18 hydrOXYzine PAMOATE [Vistaril -] 50 mg PO BID PRN #60 capsule 01/09/18 Sertraline HCl [Zoloft] 100 mg PO DAILY #30 tablet 04/14/18 Triamcinolone 0.025% Ointment [Aristocort 0.025% Ointment -] 1 applic TP QID #2 tube 04/14/18 Fluocinonide 0.05% Cream [Lidex 0.05% Cream -] 2 applic TP QID #2 tube 06/26/18 - Diagnosis (1) Alcohol dependence with uncomplicated withdrawal Status: Chronic (2) Alcohol-induced mood disorder Status: Acute (3) Alcohol-induced sleep disorder Status: Acute (4) Hypokalemia Status: Acute (5) Psoriasiform dermatitis Status: Chronic (6) Alcohol related seizure Status: Chronic (7) GERD (gastroesophageal reflux disease) Status: Chronic Qualifiers: Esophagitis presence: esophagitis presence not specified Qualified Code(s) : K21.9 - Gastro-esophageal reflux disease without esophagitis (8) Generalized psoriasis Status: Chronic (9) History of pancreatitis Status: Chronic (10) Insomnia Status: Chronic (11) MDD (major depressive disorder) Status: Chronic (12) Nicotine dependence Status: Chronic Qualifiers: Nicotine product type: cigarettes Substance use status: uncomplicated Qualified Code(s): F17.210 - Nicotine dependence, cigarettes, uncomplicated (13) PPD positive Status: Resolved - AMA Did Patient Leave Against Medical Advice: No (pt referred to outpatient)
== END 2018-06-26 09:15 | disposition home or self-care (01) | DRG 775 ==
LOC: YASAS 12:05 → Y6N 15:36
PROVIDERS: ADMIT Surgery; ATTEND Surgery
PROC: HZ2ZZZZ Detoxification Services for Substance Abuse Treatment (ICD-10-PCS; principal; 2018-06-22)
DX: F10.230 Alcohol dependence with withdrawal, uncomplicated (principal); F10.282 Alcohol dependence with alcohol-induced sleep disorder; F10.24 Alcohol dependence with alcohol-induced mood disorder; F17.213 Nicotine dependence, cigarettes, with withdrawal; F33.9 Major depressive disorder, recurrent, unspecified; E87.6 Hypokalemia; D69.6 Thrombocytopenia, unspecified; G47.00 Insomnia, unspecified; L40.8 Other psoriasis; R56.9 Unspecified convulsions; R76.11 Nonspecific reaction to tuberculin skin test without active tuberculosis; B19.10 Unspecified viral hepatitis B without hepatic coma; Z87.19 Personal history of other diseases of the digestive system
CPT/HCPCS: 36415; 80053; 85027; 86593; 87389; 93005; 93010

== ENCOUNTER 2018-07-29 12:18 | Inpatient (IN) | payer OTHER ==
[2018-07-29 13:47] VITALS: BMI 20.5
--- NOTE | 2018-07-29 14:42 | HP ---
CIWA Score Nausea/Vomitin Muscle Tremors: 3 Anxiety: 3 Agitation: 2 Paroxysmal Sweats: 2 Orientation: 0-Oriented Tacttile Disturbances: 0-None Auditory Disturbances: 0-None Visual Disturbances: 0-None Headache: 0-None Present CIWA-Ar Total Score: 12 - Admission Criteria OASAS Guidelines: Admission for Medically Managed Detox: Requires at least one of the followin. CIWA greater than 12 2. Seizures within the past 24 hours 3. Delirium tremens within the past 24 hours 4. Hallucinations within the past 24 hours 5. Acute intervention needed for co occurring medical disorder 6. Acute intervention needed for co occurring psychiatric disorder 7. Severe withdrawal that cannot be handled at a lower level of care (continued vomiting, continued diarrhea, abnormal vital signs) requiring intravenous medication and/or fluids 8. Patient presents the following: CIWA greater than 12 Admission Criteria Met: Admission criteria met Admission ROS [facility] Chief Complaint: sent here by watch caser in the retirement for alcohol detox Was last here about 6 weeks ago- restarted drinking as soon as he left here. 43 yo with psoriasis, PCP [facility]LE[facility]- takes ointment, says ointment not working. Has f /u appt next week with new PCP. Takes Zoloft, vistaril and multivitamins alcohol- drinks 3 pints of vodka/day, [place] the [place] and with seizures 3 days back- went to [facility], no DT's denies other drug use Istop- no recent meds Urine tox: Bzo, TREVON- 0.451 Allergies/Adverse Reactions: Allergies Allergy/AdvReac Type Severity Reaction Status Date / Time No Known Allergies Allergy Verified 07/29/18 13:36 Exam Limitations: No Limitations - Ebola screening Have you traveled outside of the country in the last 21 days: No (N) Have you had contact with anyone from an Ebola affected area: No Do you have a fever: No - Review of Systems Integumentary: reports: Other (psoriasis) Patient History - Patient Medical History Hx Anemia: Yes (thrombocytopenia) Hx Asthma: No Hx Chronic Obstructive Pulmonary Disease (COPD): No Hx Cancer: No Hx Cardiac Disorders: No Hx Congestive Heart Failure: No Hx Hypertension: No Hx Hypercholesterolemia: Yes (no meds) Hx Pacemaker: No HX Cerebrovascular Accident: No Hx Seizures: Yes (3mth etoh related) Hx Dementia: No Hx Diabetes: No Hx Gastrointestinal Disorders: No Hx Liver Disease: Yes (hepatitis B ?) Hx Genitourinary Disorders: No Hx Sexually Transmitted Disorders: No Hx Renal Disease (ESRD): No Hx Thyroid Disease: No Hx Human Immunodeficiency Virus (HIV): No (Mar 2018) Hx Hepatitis C: No Hx Depression: Yes Hx Suicide Attempt: No Hx Bipolar Disorder: No Hx Schizophrenia: No Other Medical History: psoriasis - Patient Surgical History Past Surgical History: No Hx Neurologic Surgery: No Hx Cataract Extraction: No Hx Cardiac Surgery: No Hx Lung Surgery: No Hx Breast Surgery: No Hx Breast Biopsy: No Hx Abdominal Surgery: No Hx Appendectomy: No Hx Cholecystectomy: No Hx Genitourinary Surgery: No Hx Section: No Hx Orthopedic Surgery: No Anesthesia Reaction: No - PPD History Results: CXR 01/15/18 - Smoking Cessation Smoking history: Current every day smoker Have you smoked in the past 12 months: Yes Aproximately how many cigarettes per day: 5 Hx Chewing Tobacco Use: No Initiated information on smoking cessation: Yes 'Breaking Loose' booklet given: 07/29/18 - Substance & Tx. History Substance Use Type: Alcohol Hx Substance Use Treatment: Yes - Substances abused Alcohol Substance route: Oral Frequency: Daily Amount used: 2 pints of vodka Age of first use: 14 Date of last use: 07/29/18 Family Disease History - Family Disease History Family Disease History: Diabetes: Father (living - in [facility]), Other: Father, Mother (living - in [facility]), Brother (four - healthy - two in [place]), Sister (two - healthy - one lives in [facility]), Daughter (one age 16 in [facility]) Admission Physical Exam [facility] - Vital Signs Vital Signs: Vital Signs - 24 hr 07/29/18 13:32 Temperature 97.5 F L Pulse Rate 108 H Respiratory 18 Rate Blood Pressure 140/91 - Physical General Appearance: Yes: Alcohol on Breath HEENTM: Yes: Within Normal Limits, EOMI, Hearing grossly Normal, Normocephalic, Normal Voice, JHONATAN, Pharynx Normal Respiratory: Yes: Within Normal Limits, Chest Non-Tender, Lungs Clear Neck: Yes: Within Normal Limits, No masses,lesions,Nodules Cardiology: Yes: Within Normal Limits, Regular Rhythm, Regular Rate Abdominal: Yes: Within Normal Limits, Normal Bowel Sounds Back: Yes: Within Normal Limits, Normal Inspection Musculoskeletal: Yes: Within Normal Limits Extremities: Yes: Within Normal Limits Neurological: Yes: Within Normal Limits, Alert, Motor Strength 5/5, Normal Mood/ Affect, Normal Response Integumentary: Yes: Other (extensive psoriatic lesions on body and extremities) - Diagnostic (1) Alcohol dependence with uncomplicated withdrawal Current Visit: No Status: Chronic (2) Generalized psoriasis Current Visit: No Status: Chronic (3) Nicotine dependence Current Visit: No Status: Chronic Qualifiers: Nicotine product type: cigarettes Substance use status: uncomplicated Qualified Code(s): F17.210 - Nicotine dependence, cigarettes, uncomplicated (4) PPD positive Current Visit: No Status: Resolved Breathalyzer - Breathalyzer Breathalyzer: 0.451 Urine Drug Screen - Test Device Lot number: [id number] Expiration date: 02/28/20 - Control Is test valid?: Yes - Results Drug screen NEGATIVE: No Urine drug screen results: BZO-Benzodiazepines Inpatient Rehab Admission - Rehab Decision to Admit Inpatient rehab admission?: No
[2018-07-29] MEDS ORDERED: MAGNESIUM CITRATE 300 ML BOTTLE PO PRN (14:51)
[2018-07-29] MEDS ORDERED: MELATONIN 5 MG TABLETS PO PRN (14:51)
[2018-07-29] MEDS ORDERED: IBUPROFEN 400 MG TABLET (FP) PO PRN (14:51)
[2018-07-29] MEDS ORDERED: MAG HYDROX/AL HYDROX/SIMETH 30 ML UNIT-DOSE CUP PO PRN (14:51)
[2018-07-29] MEDS ORDERED: METHOCARBAMOL 500 MG TABLET PO PRN (14:51)
[2018-07-29] MEDS ORDERED: MENTHOL/PHENOL 1 EACH UD MM PRN (14:51)
[2018-07-29] MEDS ORDERED: BISMUTH SUBSALICYLATE 524 MG/30 ML UD PO PRN (14:51)
[2018-07-29] MEDS ORDERED: hydrOXYzine PAMOATE 25 MG CAPSULE (FP) PO PRN (14:51)
[2018-07-29] MEDS ORDERED: LORazepam 1 MG TABLET PO PRN (14:51)
[2018-07-29] MEDS ORDERED: MAGNESIUM HYDROX 2400MG/30ML ORAL SUSPENSION 30 ML CUP PO PRN (14:51)
[2018-07-29] MEDS ORDERED: ACETAMINOPHEN 325 MG TABLET (FP) PO PRN ×2 (14:51)
[2018-07-29 17:11] LABS: HEMOGLOBIN 13.9 GM/dL (11.7-16.9); MEAN CELL VOLUME 91.3 fl (80-96); MEAN PLT VOLUME 7.8 fl (7.5-11.1); RBC 4.48 M/mm3 (4.00-5.60); RDW 17.3 % (11.9-15.9); WHITE BLOOD COUNT 4.4 K/mm3 (4.0-10.0)
[2018-07-29] MEDS: FLUOCINONIDE 0.05% CREAM (60 GM TUBE) TP SCH ×2 (17:12→22:59)
[2018-07-29] MEDS: LORazepam 2 MG TABLET PO SCH ×2 (17:14→22:59)
[2018-07-29] MEDS: SERTRALINE HCL 50 MG TABLET (FP) PO SCH (17:15)
[2018-07-29 17:18] LABS: ALK PHOS 95 U/L (45-117); ANION GAP 9 MMOL/L (8-16); BILIRUBIN,TOTAL 0.2 mg/dL (0.2-1); BLOOD UREA NITROGEN 7 mg/dL (7-18); CALCIUM 8.7 mg/dL (8.5-10.1); CHLORIDE 104 mmol/L (98-107); CO2 28 mmol/L (21-32); GLUCOSE,RANDOM 100 mg/dL (74-106); POTASSIUM 3.7 mmol/L (3.5-5.1); SGOT/AST 93 U/L (15-37); SGPT/ALT 76 U/L (13-61); SODIUM 141 mmol/L (136-145); TOT PROT 8.1 g/dl (6.4-8.2)
[2018-07-29] MEDS: diphenhydrAMINE HCL 50 MG CAPSULE PO PRN (17:44)
[2018-07-29 22:55] LABS: EPI CELLS 1.4 /HPF (0-5/HPF); PH,URINE 6.5 (5.0-8.0); URINE APPEARANCE CLEAR; URINE BACTERIA 0.7 /hpf (NEGATIVE); URINE BILIRUBIN NEGATIVE (NEGATIVE); URINE CASTS 2 /lpf (0-8); URINE COLOR YELLOW; URINE GLUCOSE (UA) NEGATIVE (NEGATIVE); URINE KETONE NEGATIVE (NEGATIVE); URINE LEUK ESTERASE NEGATIVE (NEGATIVE); URINE NITRITE NEGATIVE (NEGATIVE); URINE PROTEIN 1+ (NEGATIVE); URINE RBC 0 /hpf (0-4); URINE WBC 1 /hpf (0-5)
[2018-07-29] MEDS: THIAMINE HCL 100 MG TABLET (FP) PO SCH (22:59)
[2018-07-30] MEDS: LORazepam 2 MG TABLET PO SCH ×2 (05:21→10:09)
--- NOTE | 2018-07-30 09:45 | PN ---
S CIWA - CIWA Score Nausea/Vomitin-Mild Nausea/No Vomiting Muscle Tremors: 3 Anxiety: 2 Agitation: 2 Paroxysmal Sweats: 1-Minimal Palms Moist Orientation: 2-Disoriented Date<2 days Tacttile Disturbances: 0-None Auditory Disturbances: 0-None Visual Disturbances: 0-None Headache: 2-Mild CIWA-Ar Total Score: 13 BHS Progress Note (SOAP) Subjective: reporting long history of psoriasis treated with topical cream and taking anti itchy medication vistaril 50 mg x [address] social with peers Objective: 07/30/18 10:12 Vital Signs Temperature 98.2 F 07/30/18 09:03 Pulse Rate 101 H 07/30/18 09:03 Respiratory Rate 20 07/30/18 09:03 Blood Pressure 153/96 07/30/18 09:03 O2 Sat by Pulse Oximetry (%) Laboratory Last Values WBC 4.4 K/mm3 (4.0-10.0) 07/29/18 15:15 RBC 4.48 M/mm3 (4.00-5.60) 07/29/18 15:15 Hgb 13.9 GM/dL (11.7-16.9) 07/29/18 15:15 Hct 41.0 % (35.4-49) 07/29/18 15:15 MCV 91.3 fl (80-96) 07/29/18 15:15 MCH 31.0 pg (25.7-33.7) 07/29/18 15:15 MCHC 34.0 g/dl (32.0-35.9) 07/29/18 15:15 RDW 17.3 % (11.9-15.9) H 07/29/18 15:15 Plt Count No Result Required. 07/29/18 15:15 MPV 7.8 fl (7.5-11.1) 07/29/18 15:15 Platelet Comment Slt plt clumping 07/29/18 15:15 Sodium 141 mmol/L (136-145) 07/29/18 15:15 Potassium 3.7 mmol/L (3.5-5.1) 07/29/18 15:15 Chloride 104 mmol/L (98-107) 07/29/18 15:15 Carbon Dioxide 28 mmol/L (21-32) 07/29/18 15:15 Anion Gap 9 MMOL/L (8-16) 07/29/18 15:15 BUN 7 mg/dL (7-18) 07/29/18 15:15 Creatinine 1.0 mg/dL (0.55-1.3) 07/29/18 15:15 Creat Clearance w eGFR 81.55 (>60) 07/29/18 15:15 Random Glucose 100 mg/dL (74-106) 07/29/18 15:15 Calcium 8.7 mg/dL (8.5-10.1) 07/29/18 15:15 Total Bilirubin 0.2 mg/dL (0.2-1) 07/29/18 15:15 AST 93 U/L (15-37) H 07/29/18 15:15 ALT 76 U/L (13-61) H 07/29/18 15:15 Alkaline Phosphatase 95 U/L (45-117) 07/29/18 15:15 Total Protein 8.1 g/dl (6.4-8.2) 07/29/18 15:15 Albumin 4.0 g/dl (3.4-5.0) 07/29/18 15:15 Urine Color Yellow 07/29/18 21:15 Urine Appearance Clear 07/29/18 21:15 Urine pH 6.5 (5.0-8.0) 07/29/18 21:15 Ur Specific Hines 1.009 (1.010-1.035) L 07/29/18 21:15 Urine Protein 1+ (NEGATIVE) H 07/29/18 21:15 Urine Glucose (UA) Negative (NEGATIVE) 07/29/18 21:15 Urine Ketones Negative (NEGATIVE) 07/29/18 21:15 Urine Blood Negative (NEGATIVE) 07/29/18 21:15 Urine Nitrite Negative (NEGATIVE) 07/29/18 21:15 Urine Bilirubin Negative (NEGATIVE) 07/29/18 21:15 Urine Urobilinogen 1.0 mg/dL (0.2-1.0) 07/29/18 21:15 Ur Leukocyte Esterase Negative (NEGATIVE) 07/29/18 21:15 Urine WBC (Auto) 1 /hpf (0-5) 07/29/18 21:15 Urine RBC (Auto) 0 /hpf (0-4) 07/29/18 21:15 Urine Casts (Auto) 2 /lpf (0-8) 07/29/18 21:15 U Epithel Cells (Auto) 1.4 /HPF (0-5/HPF) 07/29/18 21:15 Urine Bacteria (Auto) 0.7 /hpf (NEGATIVE) 07/29/18 21:15 lab noted discuss alcohol related liver enzyme elevation Assessment: 07/30/18 10:13 withdrawal sx Plan: continue detox
[2018-07-30] MEDS ORDERED: FOLIC ACID 1 MG TABLET (FP) PO SCH (10:00)
[2018-07-30] MEDS: PRENATAL VITAMINS W/ FOLIC ACID TABLET (FP) PO SCH (10:09)
[2018-07-30] MEDS: FLUOCINONIDE 0.05% CREAM (60 GM TUBE) TP SCH ×4 (10:09→22:18)
[2018-07-30] MEDS: SERTRALINE HCL 50 MG TABLET (FP) PO SCH (10:09)
[2018-07-30] MEDS: diphenhydrAMINE HCL 50 MG CAPSULE PO PRN (10:10)
[2018-07-30] MEDS: NICOTINE 14 MG/24 HOURS TOPICAL PATCH TD SCH (10:11)
[2018-07-30] MEDS: hydrOXYzine PAMOATE 50 MG CAPSULE (FP) PO PRN ×2 (16:38→22:20)
[2018-07-30] MEDS: LORazepam 1 MG TABLET PO SCH ×2 (16:38→22:18)
[2018-07-30] MEDS ORDERED: cloNIDine HCL 0.1 MG TABLET PO PRN (18:26)
[2018-07-30] MEDS: THIAMINE HCL 100 MG TABLET (FP) PO SCH (22:18)
[2018-07-31] MEDS: LORazepam 1 MG TABLET PO SCH ×2 (06:26→10:07)
[2018-07-31 09:28] VITALS: BP 138/98; PULSE 117; TEMP 97.4
[2018-07-31] MEDS: SERTRALINE HCL 50 MG TABLET (FP) PO SCH (10:07)
[2018-07-31] MEDS: PRENATAL VITAMINS W/ FOLIC ACID TABLET (FP) PO SCH (10:07)
[2018-07-31] MEDS: FLUOCINONIDE 0.05% CREAM (60 GM TUBE) TP SCH (10:08)
[2018-07-31] MEDS: NICOTINE 14 MG/24 HOURS TOPICAL PATCH TD SCH (10:08)
[2018-07-31] MEDS: hydrOXYzine PAMOATE 50 MG CAPSULE (FP) PO PRN (10:11)
--- NOTE | 2018-07-31 10:19 | DS ---
[facility] Detox Discharge Summary Admission Date: 07/29/18 Discharge Date: 07/31/18 - History Present History: Alcohol Dependence Pertinent Past History: Pt was admitted 2 days ago for alcohol detox. Pt states he feels better now and would like to leave so that he can get ready to get his mother from airport. Pt [facility] and would f/u with counselors there. - Physical Exam Results Vital Signs: Vital Signs Temperature 97.4 F L 07/31/18 09:27 Pulse Rate 117 H 07/31/18 09:27 Respiratory Rate 18 07/31/18 09:27 Blood Pressure 138/98 07/31/18 09:27 O2 Sat by Pulse Oximetry (%) - Treatment Hospital Course: Detox Protocol Followed - Medication Discharge Medications: Ambulatory Orders Pantoprazole Sodium [Protonix] 40 mg PO DAILY 01/08/18 hydrOXYzine PAMOATE [Vistaril -] 50 mg PO BID PRN #60 capsule 01/09/18 Sertraline HCl [Zoloft] 100 mg PO DAILY #30 tablet 04/14/18 Triamcinolone 0.025% Ointment [Aristocort 0.025% Ointment -] 1 applic TP QID #2 tube 04/14/18 Fluocinonide 0.05% Cream [Lidex 0.05% Cream -] 2 applic TP QID #2 tube 06/26/18 Folic Acid 1 mg PO DAILY 07/29/18 - Diagnosis (1) Alcohol dependence with uncomplicated withdrawal Current Visit: No Status: Chronic (2) Generalized psoriasis Current Visit: No Status: Chronic (3) Nicotine dependence Current Visit: No Status: Chronic Qualifiers: Nicotine product type: cigarettes Substance use status: uncomplicated Qualified Code(s): F17.210 - Nicotine dependence, cigarettes, uncomplicated (4) PPD positive Current Visit: No Status: Resolved - AMA Did Patient Leave Against Medical Advice: Yes
[2018-07-31] MEDS ORDERED: LORazepam 0.5 MG TABLET PO SCH (17:00)
[2018-07-31] MEDS ORDERED: LORazepam 0.5 MG TABLET PO PRN (17:00)
== END 2018-07-31 11:10 | disposition home or self-care (01) | DRG 775 ==
LOC: YASAS 12:18 → Y3N 16:47
PROVIDERS: ADMIT Surgery; ATTEND Surgery
PROC: HZ2ZZZZ Detoxification Services for Substance Abuse Treatment (ICD-10-PCS; principal; 2018-07-29)
DX: F10.230 Alcohol dependence with withdrawal, uncomplicated (principal); F17.210 Nicotine dependence, cigarettes, uncomplicated; D69.6 Thrombocytopenia, unspecified; L40.9 Psoriasis, unspecified; R94.5 Abnormal results of liver function studies; R74.8 Abnormal levels of other serum enzymes; R76.11 Nonspecific reaction to tuberculin skin test without active tuberculosis; Z86.19 Personal history of other infectious and parasitic diseases
CPT/HCPCS: 36415; 80053; 81003; 85027; 86593; J0735

== ENCOUNTER 2019-05-21 11:22 | Inpatient (IN) | payer OTHER ==
--- NOTE | 2019-05-21 11:51 | BHS.RME ---
Substance Use & Tx History - Substance Use History Alcohol Substance amount: 3 pints vodka Frequency of use: Daily Substance route: Oral Date of Last Use: 05/21/19 Physical/Psych/Mental Status - Behavior General Behavior: Decreased activity Eye Contact: Normal - Cooperativeness Cooperativeness: Cooperative - Thinking Thought Processes: Logical, Goal Directed Thought content: Future oriented - Physical Health Problems Is patient presently having any pain?: No Does patient presently have any injuries (include location): No Does patient currently have a fever: No Is patient : No CIWA Nausea/Vomitin-Int. Nausea w/Dry Heave Muscle Tremors: 4-Moderate,w/Arms Extend Anxiety: 2 Agitation: 2 Paroxysmal Sweats: 2 Orientation: 1-Uncertain about Date Tacttile Disturbances: 0-None Auditory Disturbances: 0-None Visual Disturbances: 0-None Headache: 0-None Present CIWA-Ar Total Score: 15
[2019-05-21 12:14] VITALS: BMI 19.5
--- NOTE | 2019-05-21 12:27 | HP ---
CIWA Score Nausea/Vomitin-Int. Nausea w/Dry Heave Muscle Tremors: 4-Moderate,w/Arms Extend Anxiety: 2 Agitation: 2 Paroxysmal Sweats: 2 Orientation: 1-Uncertain about Date Tacttile Disturbances: 0-None Auditory Disturbances: 0-None Visual Disturbances: 0-None Headache: 0-None Present CIWA-Ar Total Score: 15 - Admission Criteria OASAS Guidelines: Admission for Medically Managed Detox: Requires at least one of the followin. CIWA greater than 12 2. Seizures within the past 24 hours 3. Delirium tremens within the past 24 hours 4. Hallucinations within the past 24 hours 5. Acute intervention needed for co occurring medical disorder 6. Acute intervention needed for co occurring psychiatric disorder 7. Severe withdrawal that cannot be handled at a lower level of care (continued vomiting, continued diarrhea, abnormal vital signs) requiring intravenous medication and/or fluids 8. Admitting History and Physical - Admission Chief Complaint: " I want to enter detox again and I was just at [facility] 3 weeks ago." History of Present Illness: 43 year old male with history of alcohol dependence with intoxication. He was last here in 07/29-07/31/2018 and signed AMA S/P [facility] 3 weeks ago and blacked out. PMH: Psoriasis, Thrombocytopenia, HLD, HBV+, HTN Psych: Depression, Anxiety Alcohol: 3 pints vodka daily, blacked out in 06/2018 as well, has had seizures withdrawal last 06/2018 Smokes 1/2 ppd He is high risk for relapse and has poor support systems and is homeless. History Source: Patient Limitations to Obtaining History: No Limitations - Past Medical History Rheumatology: Yes: Other (Psoriasis) - Past Surgical History Past Surgical History: Yes: None - Smoking History Smoking history: Current every day smoker Have you smoked in the past 12 months: Yes Aproximately how many cigarettes per day: 10 - Alcohol/Substance Use Hx Alcohol Use: Yes Admission [facility] Allergies/Adverse Reactions: Allergies Allergy/AdvReac Type Severity Reaction Status Date / Time No Known Allergies Allergy Verified 05/21/19 12:09 Exam Limitations: No Limitations - Ebola screening Have you traveled outside of the country in the last 21 days: No Have you had contact with anyone from an Ebola affected area: No Have you been sick,other than usual withdrawal symptoms: No Do you have a fever: No - Review of Systems Constitutional: Chills, Unintentional Wgt. Loss EENT: reports: No Symptoms Reported Respiratory: reports: No Symptoms reported Cardiac: reports: No Symptoms Reported GI: reports: No Symptoms Reported : reports: No Symptoms Reported Musculoskeletal: reports: No Symptoms Reported Integumentary: reports: No Symptoms Reported Neuro: reports: No Symptoms reported Endocrine: reports: No Symptoms Reported Hematology: reports: No Symptoms Reported Psychiatric: reports: Judgement Intact, Orientated x3, Agitated, Anxious Other Systems: Reviewed and Negative Patient History - Patient Medical History Hx Anemia: Yes (thrombocytopenia) Hx Asthma: No Hx Chronic Obstructive Pulmonary Disease (COPD): No Hx Cancer: No Hx Cardiac Disorders: No Hx Congestive Heart Failure: No Hx Hypertension: Yes (not on meds.) Hx Hypercholesterolemia: Yes (no meds) Hx Pacemaker: No HX Cerebrovascular Accident: No Hx Seizures: Yes (etoh related seizures last 07/17) Hx Dementia: No Hx Diabetes: No Hx Gastrointestinal Disorders: Yes (Pt has a hx of GERD) Hx Liver Disease: Yes (hepatitis B ?) Hx Genitourinary Disorders: No Hx Sexually Transmitted Disorders: No Hx Renal Disease (ESRD): No Hx Thyroid Disease: No Hx Human Immunodeficiency Virus (HIV): No (Mar 2018) Hx Hepatitis C: No Hx Depression: Yes Hx Suicide Attempt: No Hx Bipolar Disorder: No Hx Schizophrenia: No - Patient Surgical History Past Surgical History: No Hx Neurologic Surgery: No Hx Cataract Extraction: No Hx Cardiac Surgery: No Hx Lung Surgery: No Hx Breast Surgery: No Hx Breast Biopsy: No Hx Abdominal Surgery: No Hx Appendectomy: No Hx Cholecystectomy: No Hx Genitourinary Surgery: No Hx Section: No Hx Orthopedic Surgery: No Anesthesia Reaction: No - PPD History Documented Results: Negative w/o proof Implanted On Prior [facility] Admission?: No Results: CXR 06/2018 PPD to be Administered?: No - Smoking Cessation Smoking history: Current every day smoker Have you smoked in the past 12 months: Yes Aproximately how many cigarettes per day: 10 Hx Chewing Tobacco Use: No Initiated information on smoking cessation: Yes 'Breaking Loose' booklet given: 05/21/19 - Substances abused Alcohol Substance route: Oral Frequency: Daily Amount used: 3 pints Age of first use: 14 Date of last use: 05/21/19 Admission Physical Exam BHS - Vital Signs Vital Signs: Vital Signs - 24 hr 05/21/19 12:11 Temperature 97.4 F L Pulse Rate 112 H Respiratory 18 Rate Blood Pressure 138/90 - Physical General Appearance: Yes: Moderate Distress, Tremorous, Sweating, Anxious HEENTM: Yes: EOMI, Hearing grossly Normal, Normal ENT Inspection, Normocephalic , Normal Voice, JHONATAN, Pharynx Normal, Tm's normal Respiratory: Yes: Chest Non-Tender, Lungs Clear, Normal Breath Sounds, No Respiratory Distress, No Accessory Muscle Use Neck: Yes: No masses,lesions,Nodules, Supple, Trachea in good position Breast: Yes: Within Normal Limits Cardiology: Yes: Regular Rhythm, S1, S2, Tachycardia Abdominal: Yes: Normal Bowel Sounds, Non Tender, Flat, Soft Genitourinary: Yes: Within Normal Limits Back: Yes: Normal Inspection Musculoskeletal: Yes: full range of Motion, Gait Steady, Pelvis Stable Extremities: Yes: Normal Capillary Refill, Normal Inspection Neurological: Yes: electrician master II-XII NML intact, Fully Oriented, Alert, Motor Strength 5/5, Normal Mood/Affect, Normal Response Integumentary: Yes: Normal Color, Warm Lymphatic: Yes: Within Normal Limits - Diagnostic (1) Alcohol intoxication delirium with moderate or severe use disorder Current Visit: Yes Status: Acute (2) Alcohol dependence with uncomplicated withdrawal Current Visit: Yes Status: Chronic (3) Alcohol related seizure Current Visit: Yes Status: Chronic (4) GERD (gastroesophageal reflux disease) Current Visit: Yes Status: Chronic Qualifiers: Esophagitis presence: esophagitis presence not specified Qualified Code(s) : K21.9 - Gastro-esophageal reflux disease without esophagitis (5) Generalized psoriasis Current Visit: Yes Status: Chronic (6) Insomnia Current Visit: Yes Status: Chronic (7) Nicotine dependence Current Visit: Yes Status: Chronic Qualifiers: Nicotine product type: cigarettes Substance use status: uncomplicated Qualified Code(s): F17.210 - Nicotine dependence, cigarettes, uncomplicated (8) PPD positive Current Visit: Yes Status: Resolved Cleared for Admission [facility] - Detox or Rehab [facility] Level of Care: Medically Managed Detox Regimen/Protocol: Librium Claeared for Rehab Admission: No Screened but not Admitted - Documentation of Visit Screened but not Admitted: No Breathalyzer - Breathalyzer Breathalyzer: 0.328 Urine Drug Screen - Test Device Lot number: [id number] Expiration date: 02/27/21 - Control Is test valid?: Yes - Results Drug screen NEGATIVE: Yes Urine drug screen results: BZO-Benzodiazepines Inpatient Rehab Admission - Rehab Decision to Admit Inpatient rehab admission?: No
[2019-05-21] MEDS ORDERED: MELATONIN 5 MG TABLETS PO PRN (12:32)
[2019-05-21] MEDS ORDERED: MAGNESIUM CITRATE 300 ML BOTTLE PO PRN (12:32)
[2019-05-21] MEDS ORDERED: MENTHOL/PHENOL 1 EACH UD MM PRN (12:32)
[2019-05-21] MEDS ORDERED: MAG HYDROX/AL HYDROX/SIMETH 30 ML UNIT-DOSE CUP PO PRN (12:32)
[2019-05-21] MEDS ORDERED: IBUPROFEN 400 MG TABLET (FP) PO PRN (12:32)
[2019-05-21] MEDS ORDERED: BISMUTH SUBSALICYLATE 262 MG/15 ML BTL PO PRN (12:32)
[2019-05-21] MEDS ORDERED: ACETAMINOPHEN 325 MG TABLET (FP) PO PRN ×2 (12:32)
[2019-05-21] MEDS ORDERED: METHOCARBAMOL 500 MG TABLET PO PRN (12:32)
[2019-05-21] MEDS ORDERED: hydrOXYzine PAMOATE 25 MG CAPSULE (FP) PO PRN (12:32)
[2019-05-21] MEDS ORDERED: MAGNESIUM HYDROX 2400MG/30ML ORAL SUSPENSION 30 ML CUP PO PRN (12:32)
[2019-05-21] MEDS ORDERED: hydrOXYzine PAMOATE 50 MG CAPSULE (FP) PO PRN (12:34)
[2019-05-21] MEDS: chlordiazePOXIDE HCL 25 MG CAPSULE PO SCH ×3 (13:57→22:05)
[2019-05-21] MEDS: NICOTINE 7 MG/24 HOURS TOPICAL PATCH TD SCH (13:57)
[2019-05-21] MEDS: PANTOPRAZOLE 40 MG TABLET PO SCH (13:58)
[2019-05-21] MEDS ORDERED: TRIAMCINOLONE ACET 0.025% OINTMENT 15 GM TUBE TP SCH (14:00)
[2019-05-21] MEDS: FLUOCINONIDE 0.05% CREAM (60 GM TUBE) TP SCH ×3 (14:40→22:06)
[2019-05-21] MEDS: FLUTICASONE PROP 0.05% 16 GM NASAL SPRAY NS SCH (14:40)
[2019-05-21 16:30] LABS: HEMATOCRIT 40.3 % (35.4-49); HEMOGLOBIN 13.9 GM/dL (11.7-16.9); MCHC 34.4 g/dl (32.0-35.9); MEAN CELL VOLUME 98.7 fl (80-96); MEAN PLT VOLUME 8.2 fl (7.5-11.1); PLATELET COUNT 99 K/MM3 (134-434); RBC 4.08 M/mm3 (4.00-5.60); RDW 14.8 % (11.9-15.9); WHITE BLOOD COUNT 4.6 K/mm3 (4.0-10.0)
[2019-05-21 16:42] LABS: ALBUMIN 3.6 g/dl (3.4-5.0); BILIRUBIN,TOTAL 0.5 mg/dL (0.2-1); BLOOD UREA NITROGEN 5.6 mg/dL (7-18); CALCIUM 8.3 mg/dL (8.5-10.1); CREATININE 0.9 mg/dL (0.55-1.3)
[2019-05-21 16:46] LABS: POTASSIUM 2.8 mmol/L (3.5-5.1)
[2019-05-21] MEDS ORDERED: POTASSIUM CHLORIDE TABS 20 MEQ TABLET.ER (FP) PO ONE (17:30)
[2019-05-21] MEDS: THIAMINE HCL 100 MG TABLET (FP) PO SCH (22:06)
[2019-05-22] MEDS: chlordiazePOXIDE HCL 25 MG CAPSULE PO PRN ×3 (03:04→11:56)
[2019-05-22] MEDS: chlordiazePOXIDE HCL 25 MG CAPSULE PO SCH ×4 (05:35→23:56)
[2019-05-22] MEDS ORDERED: PRENATAL VITAMINS W/ FOLIC ACID TABLET (FP) PO SCH (10:00)
[2019-05-22] MEDS: PANTOPRAZOLE 40 MG TABLET PO SCH (10:50)
[2019-05-22] MEDS: NICOTINE 7 MG/24 HOURS TOPICAL PATCH TD SCH (10:50)
[2019-05-22] MEDS: POTASSIUM CHLORIDE TABS 20 MEQ TABLET.ER (FP) PO SCH (10:50)
[2019-05-22] MEDS: FLUTICASONE PROP 0.05% 16 GM NASAL SPRAY NS SCH (10:51)
[2019-05-22] MEDS: FLUOCINONIDE 0.05% CREAM (60 GM TUBE) TP SCH ×2 (10:54→14:30)
--- NOTE | 2019-05-22 13:57 | PN ---
[facility] CIWA - CIWA Score Nausea/Vomitin-No Nausea/No Vomiting Muscle Tremors: 3 Anxiety: 4-Mod. Anxious/Guarded Agitation: 3 Paroxysmal Sweats: No Perspiration Orientation: 0-Oriented Tacttile Disturbances: 3-Moderate Itch/Numb/Burn Auditory Disturbances: 0-None Visual Disturbances: 1-Very Mild Sensitivity Headache: 0-None Present CIWA-Ar Total Score: 14 S Progress Note (SOAP) Subjective: Anxious, Restless, Tremors, Itching (Generalized). Objective: PATIENT A & O X 3, OBSERVED AMBULATING ON DETOX UNIT UNASSISTED. IN NO ACUTE DISTRESS. 05/22/19 13:53 Vital Signs Temperature 97.7 F 05/22/19 12:55 Pulse Rate 98 H 05/22/19 12:55 Respiratory Rate 18 05/22/19 12:55 Blood Pressure 143/90 05/22/19 12:55 O2 Sat by Pulse Oximetry (%) Laboratory Tests 05/21/19 05/21/19 05/21/19 12:50 12:50 12:50 WBC 4.6 RBC 4.08 Hgb 13.9 Hct 40.3 MCV 98.7 H MCH 34.0 H MCHC 34.4 RDW 14.8 D Plt Count 99 L D MPV 8.2 Sodium 141 Potassium 2.8 L* Chloride 102 Carbon Dioxide 31 Anion Gap 8 BUN 5.6 L Creatinine 0.9 Est GFR (CKD-EPI)AfAm 120.81 Est GFR (CKD-EPI)NonAf 104.24 Random Glucose 88 Calcium 8.3 L Total Bilirubin 0.5 AST 131 H ALT 57 Alkaline Phosphatase 100 Total Protein 8.0 Albumin 3.6 RPR Titer HIV 1&2 Antibody Screen Negative HIV P24 Antigen Negative 05/21/19 05/22/19 12:50 07:00 WBC RBC Hgb Hct MCV MCH MCHC RDW Plt Count MPV Sodium 135 L Potassium 3.0 L Chloride 98 Carbon Dioxide 31 Anion Gap 6 L BUN Creatinine Est GFR (CKD-EPI)AfAm Est GFR (CKD-EPI)NonAf Random Glucose Calcium Total Bilirubin AST ALT Alkaline Phosphatase Total Protein Albumin RPR Titer Nonreactive HIV 1&2 Antibody Screen HIV P24 Antigen LABS NOTED. PATIENT HAS HAD LOW K AND PLATELET LEVELS AND ELEVATED AST LEVELS ON PREVIOUS ADMISSIONS. 05/22/19 13:56 Assessment: 02/22/20 13:56 WITHDRAWAL SYMPTOMS. HYPOKALEMIA. ELEVATED AST LEVEL. THROMBOCYTOPENIA. Plan: CONTINUE DETOX. INCREASE DAILY ORAL WATER INTAKE. CONTINUE K-DUR ORALLY BID. WILL RE-CHECK K LEVEL AGAIN ON 05/24/2019. PATIENT REPORTS POOR EFFECT FROM VISTARIL FOR RELIEF OF GENERALIZED ITCHING. WILL CHANGE TO BENADRYL (ORAL AND TOPICAL CREAM).
[2019-05-22] MEDS ORDERED: diphenhydrAMINE HCL 25 MG CAPSULE (FP) PO ONE (16:15)
[2019-05-22] MEDS ORDERED: diphenhydrAMINE HCL 25 MG CAPSULE (FP) PO PRN (22:00)
[2019-05-22] MEDS: THIAMINE HCL 100 MG TABLET (FP) PO SCH (23:56)
[2019-05-23] MEDS: POTASSIUM CHLORIDE TABS 20 MEQ TABLET.ER (FP) PO SCH
[2019-05-23] MEDS: FLUOCINONIDE 0.05% CREAM (60 GM TUBE) TP SCH (00:01)
--- NOTE | 2019-05-23 00:03 | PN ---
[facility] Progress Note Note: States needs Libruim for alcohol symptoms and requesting Vistaril for c/o anxiety and itch. Requesting to leave immediately Patient has a current order for Benadryl. C/o depression and anxiety. Denies thoughts of harming self or others. States very upset. Assess: Disoriented to date. Knows place and reason for admission. (+) tremors Gait steady EKG ordered and reviewed and noted to have a prolonged QTc. Plan: Reorient to date and time. De-escalate situation. Explain reason why Vistaril is being held and that benadryl was substitute. Encourage assessment for administration of prn Librium based on patients' symptoms. Psych consult
[2019-05-23] MEDS ORDERED: chlordiazePOXIDE HCL 25 MG CAPSULE PO SCH (05:00)
--- NOTE | 2019-05-23 08:32 | CONSULT ---
[facility] Psychiatric Consult - Data Date of interview: 05/23/19 Admission source: Self-referred Identifying data: Mr Bai is a 42 years old single Black male, father of a 17 years old daughter, unemployed receiving public assistance, homeless seeking detox treatment for alcohol Psychiatric History: Patient signed out against medical advice before he could be seen Psychiatric Findings - Problem List (Dania 1, 2,3) (1) MDD (major depressive disorder) Current Visit: No Status: Chronic
[2019-05-23 09:45] VITALS: BP 138/90; PULSE 108; TEMP 98.2
--- NOTE | 2019-05-23 12:26 | DS ---
[facility] Detox Discharge Summary Admission Date: 05/21/19 - History Present History: Alcohol Dependence Additional Comments: Patient demanded to leave AMA despite encouragement from staff to complete detox. As per patient, his grandmother is sick and he has to go to her apt to make sure that she is ok because his sister takes care of her and he is unable to get in touch with his sister because she's not home. Patient stated he sent a friend to check on his sister and grandmother but the sister is not home and his grandmother is home alone in the bed. Patient noted to be a little confused about the date stating today is the first may but able to state the present year and his . Patient stated he has been having withdrawal sxs: legs feel numb, left leg hurts, diarrhea. Marine Engineer encouraged patient to complete detox but he stated that he doesn't care what anyone says, he is leaving. Marine Engineer asked patient as to how he is going to travel if he is experiencing diarrhea and he told card writer hand that he will stop the bus and go to use restroom at [employer] etc. Patient instructed to call [phone] [phone] if feeling sick/withdrawal sxs and to see his PCP within 3 days. Patient stated that he is homeless and he has the rivero to his grandmother's apt and that it's only one room so that's why he doesn't stay with his grandmother. Patient left the unit in stable condition. Pertinent Past History: Alcohol dependence with intoxication HLD HTN Hepatitis B? Nicotine dependence GERD Seizure disorder - Physical Exam Results Vital Signs: Vital Signs Temperature 98.2 F 05/23/19 08:38 Pulse Rate 108 H 05/23/19 08:38 Respiratory Rate 20 05/23/19 08:38 Blood Pressure 138/90 05/23/19 08:38 O2 Sat by Pulse Oximetry (%) Pertinent Admission Physical Exam Findings: Withdrawal sxs Laboratory Tests 05/21/19 05/21/19 05/21/19 12:50 12:50 12:50 WBC 4.6 RBC 4.08 Hgb 13.9 Hct 40.3 MCV 98.7 H MCH 34.0 H MCHC 34.4 RDW 14.8 D Plt Count 99 L D MPV 8.2 Sodium 141 Potassium 2.8 L* Chloride 102 Carbon Dioxide 31 Anion Gap 8 BUN 5.6 L Creatinine 0.9 Est GFR (CKD-EPI)AfAm 120.81 Est GFR (CKD-EPI)NonAf 104.24 Random Glucose 88 Calcium 8.3 L Total Bilirubin 0.5 AST 131 H ALT 57 Alkaline Phosphatase 100 Total Protein 8.0 Albumin 3.6 RPR Titer HIV 1&2 Antibody Screen Negative HIV P24 Antigen Negative 05/21/19 05/22/19 12:50 07:00 WBC RBC Hgb Hct MCV MCH MCHC RDW Plt Count MPV Sodium 135 L Potassium 3.0 L Chloride 98 Carbon Dioxide 31 Anion Gap 6 L BUN Creatinine Est GFR (CKD-EPI)AfAm Est GFR (CKD-EPI)NonAf Random Glucose Calcium Total Bilirubin AST ALT Alkaline Phosphatase Total Protein Albumin RPR Titer Nonreactive HIV 1&2 Antibody Screen HIV P24 Antigen Labs reviewed: instructed to follow up with PCP for all abnormal lab result. Hypokalemia noted: replenished. - Medication Discharge Medications: Ambulatory Orders Pantoprazole Sodium [Protonix] 40 mg PO DAILY 01/08/18 hydrOXYzine PAMOATE [Vistaril -] 50 mg PO BID PRN #60 capsule 01/09/18 Sertraline HCl [Zoloft] 100 mg PO DAILY #30 tablet 04/14/18 Triamcinolone 0.025% Ointment [Aristocort 0.025% Ointment -] 1 applic TP QID #2 tube 04/14/18 Fluocinonide 0.05% Cream [Lidex 0.05% Cream -] 2 applic TP QID #2 tube 06/26/18 - Diagnosis (1) HTN (hypertension), benign Status: Chronic (2) HLD (hyperlipidemia) Status: Chronic (3) Seizure disorder Status: Chronic (4) Hypokalemia Status: Acute (5) GERD (gastroesophageal reflux disease) Status: Chronic Qualifiers: Esophagitis presence: esophagitis presence not specified Qualified Code(s) : K21.9 - Gastro-esophageal reflux disease without esophagitis (6) Nicotine dependence Status: Chronic Qualifiers: Nicotine product type: cigarettes Substance use status: uncomplicated Qualified Code(s): F17.210 - Nicotine dependence, cigarettes, uncomplicated (7) Thrombocytopenia Status: Chronic - AMA Did Patient Leave Against Medical Advice: Yes (Instructed to call 911 JAVIER if sick/withdrawal sxs)
[2019-05-24] MEDS ORDERED: chlordiazePOXIDE HCL 10 MG CAPSULE PO PRN
[2019-05-24] MEDS ORDERED: chlordiazePOXIDE HCL 10 MG CAPSULE PO SCH (05:00)
--- NOTE | 2019-05-24 10:09 | EKG ---
Test Reason : Blood Pressure : / mmHG Vent. Rate : 085 BPM Atrial Rate : 085 BPM P-R Int : 174 ms QRS Dur : 088 ms QT Int : 428 ms P-R-T Axes : 049 -32 017 degrees QTc Int : 509 ms NORMAL SINUS RHYTHM LEFT AXIS DEVIATION PROLONGED QT ABNORMAL ECG WHEN COMPARED WITH ECG OF 22-JUN-2018 16:00, QT HAS LENGTHENED Confirmed by Radha Goetz ([id number]) on 05/24/2019 10:08:35 AM Referred By: JONO DEJESUS Confirmed By:Radha Goetz
[2019-05-25] MEDS ORDERED: chlordiazePOXIDE HCL 10 MG CAPSULE PO SCH (05:00)
[2019-05-26] MEDS ORDERED: chlordiazePOXIDE HCL 10 MG CAPSULE PO ONE (05:00)
== END 2019-05-23 09:55 | disposition left against medical advice (07) | DRG 770 ==
LOC: YASAS 11:22 → Y6N 13:25
PROVIDERS: ADMIT Allergy & Immunology; ATTEND Allergy & Immunology
PROC: HZ2ZZZZ Detoxification Services for Substance Abuse Treatment (ICD-10-PCS; principal; 2019-05-21)
DX: F10.220 Alcohol dependence with intoxication, uncomplicated (principal); F10.221 Alcohol dependence with intoxication delirium; F17.210 Nicotine dependence, cigarettes, uncomplicated; F32.9 Major depressive disorder, single episode, unspecified; E87.6 Hypokalemia; D69.6 Thrombocytopenia, unspecified; B19.10 Unspecified viral hepatitis B without hepatic coma; I10 Essential (primary) hypertension; K21.9 Gastro-esophageal reflux disease without esophagitis; L40.9 Psoriasis, unspecified; E78.5 Hyperlipidemia, unspecified; G40.909 Epilepsy, unspecified, not intractable, without status epilepticus; R74.0 Nonspecific elevation of levels of transaminase and lactic acid dehydrogenase [LDH]; R76.11 Nonspecific reaction to tuberculin skin test without active tuberculosis
CPT/HCPCS: 36415; 80051; 80053; 85027; 86593; 87389; 93005; 93010